=== PATIENT | male | born 1965 | race African-American/Black ===

== ENCOUNTER → 2016-11-24 | Day surgery (SDC) | payer OTHER ==
[~2016-11-24] MED LIST: AMLO10TA4 PO; ATOR20TA PO; BISA-42 PO; CHLO25TA PO; CICL6.1H IH; IV RINGERS,LACTATED 1000ML 1,000 ML IV ONE; LISI-334 PO; MAGN400O4 PO; METF1000 PO; MONT10TA9 PO; NAPR500T8 PO; PROAIR HFA8.5 GM INH; SPIR50TA PO
--- NOTE | 2016-11-24 11:28 | PDOC1 ---
History and Physical Date of Admission Date of Admission DATE: 11/24/16 TIME: 11:19 Source Source: Chart review, Patient History of Present Illness History of Present Illness 50 y/o male with long h/o heartburn; more recently early satiety and abdominal pain with spontaneous improvement in heartburn over time, concerning for Joiner 's. No prior EGD. No h/o PUD, GB or pancreatic issues. Known hemangioma of liver by imaging. No current tobacco or alcohol use. Daily NSAID to some extent. Occasional constipation, using MOM prn with good results. No clear overt bleeding. Father had CRC. Past Medical History Cardiovascular: HTN Pulmonary: Asthma Musculoskeletal: Osteoarthritis Endocrine: Diabetes Past Surgical History Past Surgical History None Family History Family History: Diabetes, Hypertension Social History Smoke: Quit ALCOHOL: none Drugs: None Current Medications Current Medications Active Scripts Active Reported Aldactone (Spironolactone) 50 Mg Tablet 1 Tab PO DAILY Proair Hfa Inhaler (Albuterol Sulfate) 8.5 Gm Hfa.aer.ad 2 Puff INH Q4HRS PRN ROS Review of System Otherwise negative. Physical Exam General: Alert, Oriented X3, Cooperative, No acute distress Lungs: Clear to auscultation Heart: S1S2, RRR, no gallops, no murmurs Abdomen: Normal bowel sounds, Soft, No tenderness, No hepatosplenomegaly, No masses Rectal Exam: deferred Extremities: No cyanosis, No edema Skin: No significant lesion Neuro: Normal speech, Strength at 5/5 X4 ext, Normal tone, Sensation intact, Cranial nerves 3-12 NL, Reflexes 2+ Psych/Mental Status: Mental status NL, Mood NL VTE Prophylaxis Ordered VTE Prophylaxis Devices: No VTE Pharmacological Prophylaxi: No Assessment/Plan Assessment/Plan IMP: 1. Dyspepsia with h/o heartburn with spontaneous improvement concerning for Joiner's. 2. FH CRC in first-degree relative. PLAN: Colonoscopy and EGD. RAY RIVER MD Nov 24, 2016 11:28
[2016-11-24 12:49] VITALS: BP 109/67
--- NOTE | 2016-11-25 14:49 | PATHOLOGY ---
PATHOLOGY REPORT * * * * * * * * FINAL DIAGNOSIS: Stomach, antrum, biopsy: - Chronic superficial gastritis, mild. - No evidence of Helicobacter pylori on immunoperoxidase stain. (CORRINE:; d/t: 11/25/16) REPORT ELECTRONICALLY SIGNED BY: Ezekiel Bustamante M.D. DATE/TIME: 11/25/2016 14:48 * * * * * * * * GROSS PATHOLOGY: Received in formalin labeled "Scotty Fisher, antral biopsy," are two segments of kline soft tissue measuring 0.7 x 0.4 x 0.1 cm in aggregate dimensions and ranging from 0.5 to 0.7 cm in maximum dimension. The specimen is submitted entirely in cassette A1. (CAA; 11/24/2016) INITIAL CPT CODE(S): A; 10068, 60230 Professional services performed [place] [facility] [address] Technical services performed by [facility] at [address] [place] [address] [address] [place] [address]. [facility] [address] phone: fax: attention: Bev Mcqueen SPECIMEN(S) RECEIVED: A.Antral biopsy CLINICAL HISTORY: GERD, constipation PATIENT: SCOTTY FISHER /AGE: 4 1965 (Age: 51) PATIENT #: [id number] ALT CASE #: SPECIMEN COLLECTION DATE: 11/24/2016 SPECIMEN RECEIVED DATE: 11/24/2016 [facility] - [address] [place] [address] - PHONE: [phone] * * * END OF REPORT * * *
== END | disposition home or self-care (01) ==
LOC: EEVIPCON 10:58 → SURG 10:58
PROVIDERS: ATTEND Internal Medicine Gastroenterology
DX: Z12.11 Encounter for screening for malignant neoplasm of colon (principal); K64.8 Other hemorrhoids; K21.0 Gastro-esophageal reflux disease with esophagitis; K31.9 Disease of stomach and duodenum, unspecified; M19.90 Unspecified osteoarthritis, unspecified site; J45.909 Unspecified asthma, uncomplicated; E11.9 Type 2 diabetes mellitus without complications; Z80.0 Family history of malignant neoplasm of digestive organs; Z83.3 Family history of diabetes mellitus; Z82.49 Family history of ischemic heart disease and other diseases of the circulatory system
CPT/HCPCS: 82947; 88305; 88342; 99156; G0641

== ENCOUNTER 2021-03-08 16:12 | Inpatient (IN) | payer OTHER ==
[~2021-03-08] VITALS: Ht 182.9 cm; Wt 166.8 kg
[~2021-03-08 16:12] MED LIST changes: +ALBU2.5V8 INH; -CHLO25TA PO; +CHLO25TA10 PO; -CICL6.1H IH; +CICL6.1H3 IH; -IV RINGERS,LACTATED 1000ML 1,000 ML IV ONE; -LISI-334 PO; +LISI20TA18 PO; -MAGN400O4 PO; +MAGN400O7 PO; +MONT10TA49 PO; -MONT10TA9 PO; -PROAIR HFA8.5 GM INH
[2021-03-08] MEDS ORDERED: VANCOMYCIN PER PHARMACY MC ONE (17:45)
[2021-03-08] MEDS ORDERED: DIPH,PERTUSS(ACELL),TET VAC/PF 0.5 ML SYRINGE. VAX IM ONE (17:45)
[2021-03-08] MEDS: IV NORMAL SALINE 1000ML BAG 1,000 ML IV SCH ×3 (17:59→18:37)
[2021-03-08] MEDS ORDERED: PIPERACILLIN/TAZOBACTAM 4.5 GM in IV NORMAL SALINE 100ML 100 ML IV ONE (18:00)
[2021-03-08] MEDS: MORPHINE SULFATE 4 MG/ML INJ. IV/SQ PRN ×2 (18:00→20:31)
[2021-03-08 18:04] LABS: BASO % 0 % (0-3); EOS # 0.4 x10^3/uL (0.0-0.7); EOS % 3 % (0-3); HEMATOCRIT 37.3 % (39.0-53.0); HEMOGLOBIN 12.2 g/dL (13.0-17.5); LYMPH # 2.4 x10^3/uL (1.0-4.8); LYMPH % 15 % (24-48); MEAN CORPUSCULAR HEMOGLOBIN 28 pg (25-35); MEAN CORPUSCULAR HGB CONC 33 g/dL (31-37); MEAN CORPUSCULAR VOLUME 85 fL (79-100); MONO # 1.2 x10^3/uL (0.0-1.1); MONO % 7 % (0-9); NEUT # 11.8 x10^3/uL (1.8-7.7); NEUT % 75 % (31-73); PLATELET COUNT 299 x10^3/uL (140-400); RED BLOOD COUNT 4.38 x10^6/uL (4.30-5.70); RED CELL DISTRIBUTION WIDTH 14.5 % (11.5-14.5); WHITE BLOOD COUNT 15.8 x10^3/uL (4.0-11.0)
--- NOTE | 2021-03-08 18:06 | PHYS DOC ---
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 Patient states he was put on Bactrim 4 days ago with no improvement. Denies any fever, nausea or vomiting. (BRIANNA LEON Blake MOLDER OPERATOR) Review of Systems: Review of Systems: Constitutional: Denies fever or chills. [] Eyes: Denies change in visual acuity. [] HENT: Denies nasal congestion or sore throat. [] Respiratory: Denies cough or shortness of breath. [] Cardiovascular: Denies chest pain or edema. [] GI: Denies abdominal pain, nausea, vomiting, bloody stools or diarrhea. [] : Denies dysuria. [] Musculoskeletal: Denies back pain or joint pain. [] Integument: Reports right buttock abscess Neurologic: Denies headache, focal weakness or sensory changes. [] Psychiatric: Denies depression or anxiety. [] (ERIKARAFIABRIANNA Hodgson MOLDER OPERATOR) Heart Score: C/O Chest Pain: N/A Risk Factors: Risk Factors: DM, Current or recent (<one month) smoker, HTN, HLP, family history of CAD, obesity. Risk Scores: Score 0 - 3: 2.5% MACE over next 6 weeks - Discharge Home Score 4 - 6: 20.3% MACE over next 6 weeks - Admit for Clinical Observation Score 7 - 10: 72.7% MACE over next 6 weeks - Early Invasive Strategies (ERIKABRIANNA STEINBERG MOLDER OPERATOR) Current Medications: Current Medications Medications (Trade) Dose Ordered Sig/Fatmata Start Time Stop Time Status Last Admin Dose Admin Diphtheria/ Tetanus/Acell Pertussis (ADACEL TDap SYRINGE) 0.5 ml ONCE ONCE 03/08/21 17:45 03/08/21 17:47 DC 03/08/21 18:01 0.5 ML Morphine Sulfate (Morphine Sulfate) 4 mg PRN Q15MIN PRN 03/08/21 17:45 03/09/21 17:44 03/08/21 18:00 4 MG Piperacillin Sod/ Tazobactam Sod 4.5 gm/Sodium Chloride 100 ml @ 200 mls/hr 1X ONCE 03/08/21 18:00 03/08/21 18:29 03/08/21 18:01 200 MLS/HR Sodium Chloride 1,000 ml @ 2,340 mls/hr Q26M 03/08/21 17:45 03/08/21 18:45 03/08/21 17:59 2,340 MLS/HR Vancomycin HCl (Vanco Per Pharmacy) 1 each 1X ONCE 03/08/21 17:45 03/08/21 17:46 UNV Vancomycin HCl 2 gm/Sodium Chloride 500 ml @ 250 mls/hr 1X ONCE 03/08/21 19:00 03/08/21 20:59 (BRIANNA LEON MOLDER OPERATOR) Allergies: Allergies: Allergies Coded Allergies Type Severity Reaction Last Updated Verified No Known Drug Allergies 11/24/16 No (BRIANNA LEON MOLDER OPERATOR) Physical Exam: PE: Constitutional: Well developed, well nourished, no acute distress, non-toxic appearance. [] HENT: Normocephalic, atraumatic, bilateral external ears normal, oropharynx moist, no oral exudates, nose normal. [] Eyes: PERRLA, EOMI, conjunctiva normal, no discharge. [] Neck: Normal range of motion, no tenderness, supple, no stridor. [] Cardiovascular:Heart rate regular rhythm, no murmur [] Lungs & Thorax: Bilateral breath sounds clear to auscultation [] Abdomen: Bowel sounds normal, soft, no tenderness, no masses, no pulsatile masses. [] Skin: Right buttock cleft with moderate sized area of induration, the area is firm, erythematous at the center with a couple open areas. The area is very tender to touch. There is pus draining from the area. Back: No tenderness, no CVA tenderness. [] Extremities: No tenderness, no cyanosis, no clubbing, ROM intact, no edema. [] Neurologic: Alert and oriented X 3, normal motor function, normal sensory function, no focal deficits noted. [] Psychologic: Affect normal, judgement normal, mood normal. [] (BRIANNA LEON MOLDER OPERATOR) Current Patient Data: Vital Signs: Vital Signs Date Time Temp Pulse Resp B/P (MAP) Pulse Ox O2 Delivery O2 Flow Rate FiO2 8/7/21 18:00 98 Room Air 03/08/21 17:15 98.4 85 29 147/82 (81) 98.4 (BRIANNA LEON APRN) EKG: EKG: [] (BRIANNA LEON APRN) Radiology/Procedures: Radiology/Procedures: PROCEDURE: CT PELVIS W/CONTRAST EXAM: CT pelvis with IV contrast DATE: 03/08/2021 6:39 PM COMPARISON: No prior INDICATION: right buttock abscess TECHNIQUE: CT of the pelvis was performed following the administration of IV contrast. Axial, coronal and sagittal reformatted images were generated. PQRS compliance statement - One or more of the following individualized dose reduction techniques were utilized for this study: 1. Automated exposure control 2. Adjustment of the mA and/or kV according to patient size 3. Use of iterative reconstruction technique FINDINGS: Marked infiltration in the medial right gluteal region without discrete loculated fluid collection. Associated skin thickening is seen. Moderate colonic stool content is seen. Small or large bowel are grossly normal in caliber. No pelvic ascites, lymphadenopathy or mass. However a few mildly prominent iliac chain and inguinal lymph nodes may be reactive. Recommend close attention on follow-up. IMPRESSION: 1. Marked infiltration right gluteal region may represent cellulitis. No discrete associated loculated fluid collection or abscess is seen. 2. Prominent pelvic lymph nodes and inguinal lymph nodes may be reactive, recommend close attention on follow-up. Electronically signed by: Vince Rogel MD (03/08/2021 7:20 PM) [facility] DICTATED and SIGNED BY: VINCE ROGEL MD DATE: 03/08/21 [id number] (BRIANNA LEON MOLDER OPERATOR) Course & Med Decision Making: Course & Med Decision Making Pertinent Labs and Imaging studies reviewed. (See chart for details) This is a 55-year-old male patient presented to the ED today with a large abscess in the right buttock. Symptoms began 1 week ago. Has been tried on Bactrim with no success. Vitals on arrival to the ED temperature 98.4, heart rate 85, respiration 29 on room air, O2 sats 98%, blood pressure 147/82. CBC with a WBC of 15.8, hemoglobin 12.2 with hematocrit of 37.3. Lactic is normal. CMP with potassium of 3.2 given oral potassium replacement, sed rate 54, CRP 77.8. CT of the pelvic with IV contrast noted for Marked infiltration right gluteal region may represent cellulitis. No discrete associated loculated fluid co llection or abscess is seen. Tetanus was given in the ED, spoke to Dr. Altamirano general surgeon who follow-up with the patient. Spoke to Dr. Fleming who accepted patient for admission Patient was given Zosyn and vancomycin (BRIANNA LEON APRN) Course & Med Decision Making I have participated in the care of this patient and I have reviewed and agree with all pertinent clinical information above including history, exam, and recommendations. Krystal Fisher DO (KRYSTAL FISHER DO) Ashley Disclaimer: Ashley Disclaimer: This electronic medical record was generated, in whole or in part, using a voice recognition dictation system. (BRIANNA LEON APRN) Departure Departure Impression: Primary Impression: Abscess of right buttock Additional Impression: Cellulitis of buttock, right Disposition: ADMITTED INPATIENT Condition: STABLE Referrals: UNKNOWN PCP NAME (PCP) BRIANNA LEON APRN Mar 08, 2021 18:06 KRYSTAL FISHER DO Mar 08, 2021 23:49
[2021-03-08 18:28] LABS: CALCIUM 9.2 mg/dL (8.5-10.1); CREATININE 1.1 mg/dL (0.7-1.3); GFR 83.8; POTASSIUM 3.2 mmol/L (3.5-5.1)
[2021-03-08 18:34] LABS: ALBUMIN 3.3 g/dL (3.4-5.0); ALBUMIN/GLOBULIN RATIO 0.7 (1.0-1.7); C-REACTIVE PROTEIN 77.8 mg/L (0-3.3); TOTAL BILIRUBIN 0.4 mg/dL (0.2-1.0); TOTAL PROTEIN 7.8 g/dL (6.4-8.2)
[2021-03-08] MEDS ORDERED: IOHEXOL 300 MG/ML 100ML VIAL. IV ONE (18:45)
[2021-03-08] MEDS ORDERED: VANCOMYCIN 2 GM in IV NORMAL SALINE 500ML BAG 500 ML IV ONE (19:00)
--- NOTE | 2021-03-08 19:22 | RAD ---
EXAM: CT pelvis with IV contrast DATE: 03/08/2021 6:39 PM COMPARISON: No prior INDICATION: right buttock abscess TECHNIQUE: CT of the pelvis was performed following the administration of IV contrast. Axial, coronal and sagittal reformatted images were generated. PQRS compliance statement - One or more of the following individualized dose reduction techniques wer e utilized for this study: 1. Automated exposure control 2. Adjustment of the mA and/or kV according to patient size 3. Use of iterative reconstruction technique FINDINGS: Marked infiltration in the medial right gluteal region without discrete loculated fluid collection. A ssociated skin thickening is seen. Moderate colonic stool content is seen. Small or large bowel are grossly normal in caliber. No pelvic ascites, lymphadenopathy or mass. However a few mildly prominent iliac chain and inguinal lymph node s may be reactive. Recommend close attention on follow-up. IMPRESSION: 1. Marked infiltration right gluteal region may represent cellulitis. No discrete associated loculat ed fluid collection or abscess is seen. 2. Prominent pelvic lymph nodes and inguinal lymph nodes may be reactive, recommend close attention on follow-up. Electronically signed by: Vince Rossi MD (03/08/2021 7:20 PM) KARINA
[2021-03-08] MEDS ORDERED: MAGNESIUM HYDROXIDE 2,400 MG/30 ML ORAL.SUSP. PO PRN (19:30)
[2021-03-08] MEDS ORDERED: ZOLPIDEM 5 MG TABLET. PO PRN (19:30)
[2021-03-08] MEDS ORDERED: ACETAMINOPHEN 325 MG TABLET. PO PRN ×2 (19:30→21:00)
[2021-03-08] MEDS ORDERED: ONDANSETRON PF 4 MG/2 ML VIAL. IVP PRN ×2 (19:30→21:00)
[2021-03-08] MEDS ORDERED: MAG HYDROX/ALUMINUM HYD/SIMETH 30 ML ORAL.SUSP PO PRN (19:30)
[2021-03-08] MEDS ORDERED: CALCIUM CARBONATE 500 MG TAB.CHEW PO PRN (19:30)
--- NOTE | 2021-03-08 19:41 | PDOC1 ---
History and Physical Date of Admission Date of Admission DATE: 03/08/21 TIME: 19:38 Identification/Chief Complaint Chief Complaint Abscess Source Source: Chart review, Patient History of Present Illness History of Present Illness Patient is a 55-year-old male who presents from [facility] for evaluation of a right gluteal abscess that is been present since March 01, he states he has been treated with Bactrim twice daily without improvement. States that since has been within purulent fluid, and is tender to touch. He denies any fever, nausea, or vomiting. Labs on admission showed WBC 15.8, hemoglobin 12.2, hematocrit 37.3, potassium 3.2, CRP 77.8, albumin 3.3. CT abdomen/pelvis on admission showed marked infiltration right gluteal region may represent cellulitis but no discrete associated loculated fluid collection. He received IV fluids and IV antibiotics in the ED. Will admit patient for further medical management. Past Medical History Cardiovascular: HTN Pulmonary: Asthma Musculoskeletal: Osteoarthritis Endocrine: Diabetes Past Surgical History Past Surgical History Denies surgical history Family History Family History: Diabetes, Hypertension Social History Smoke: No ALCOHOL: none Drugs: None Current Medications Current Medications Current Medications Sodium Chloride 1,000 ml @ 2,340 mls/hr Q26M IV Last administered on 03/08/21at 17:59; Start 03/08/21 at 17:45; Stop 03/08/21 at 18:45; Status DC Piperacillin Sod/ Tazobactam Sod 4.5 gm/Sodium Chloride 100 ml @ 200 mls/hr 1X ONCE IV Last administered on 03/08/21at 18:01; Start 03/08/21 at 18:00; Stop 03/08/21 at 18:29; Status DC Vancomycin HCl (Vanco Per Pharmacy) 1 each 1X ONCE MC Last administered on 03/08/21at 17:45; Start 03/08/21 at 17:45; Stop 03/08/21 at 19:22; Status DC Morphine Sulfate (Morphine Sulfate) 4 mg PRN Q15MIN PRN IV/SQ PAIN GREATER THAN 3/10 Last administered on 03/08/21at 18:00; Start 03/08/21 at 17:45; Stop 03/09/21 at 17:44 Diphtheria/ Tetanus/Acell Pertussis (ADACEL TDap SYRINGE) 0.5 ml ONCE ONCE VAX IM Last administered on 03/08/21at 18:01; Start 03/08/21 at 17:45; Stop 03/08/21 at 17:47; Status DC Vancomycin HCl 2 gm/Sodium Chloride 500 ml @ 250 mls/hr 1X ONCE IV Last administered on 03/08/21at 19:00; Start 03/08/21 at 19:00; Stop 03/08/21 at 20:59 Iohexol (Omnipaque 300 Mg/ml) 75 ml 1X ONCE IV Last administered on 03/08/21at 19:03; Start 03/08/21 at 18:45; Stop 03/08/21 at 19:19; Status DC Vancomycin HCl 1.5 gm/Sodium Chloride 500 ml @ 250 mls/hr Q8H IV ; Start 03/09/21 at 03:00 Vancomycin HCl (Vancomycin Trough Level) 1 each 1X ONCE MC ; Start 03/09/21 at 18:30; Stop 03/09/21 at 18:31 Morphine Sulfate (Morphine Sulfate) 5 mg PRN Q2HR PRN IV SEVERE PAIN 7-10; Start 03/08/21 at 19:30; Status UNV Ondansetron HCl (Zofran) 4 mg PRN Q6HRS PRN IVP NAUSEA/VOMITING; Start 03/08/21 at 19:30; Status UNV Al Hydroxide/Mg Hydroxide (Mylanta Plus Xs) 30 ml PRN Q3HRS PRN PO HEARTBURN / GAS; Start 03/08/21 at 19:30; Status UNV Calcium Carbonate/ Glycine (Tums) 500 mg PRN Q3HRS PRN PO UPSET STOMACH; Start 03/08/21 at 19:30; Status UNV Zolpidem Tartrate (Ambien) 5 mg PRN QHS PRN PO INSOMNIA, MAY REPEAT IN 1HR; Start 03/08/21 at 19:30; Status UNV Acetaminophen (Tylenol) 650 mg PRN Q6HRS PRN PO Headaches, Temp > 101.5F; Start 03/08/21 at 19:30; Status UNV Magnesium Hydroxide (Milk Of Magnesia) 2,400 mg PRN Q12HR PRN PO CONSTIPATION; Start 03/08/21 at 19:30; Status UNV Heparin Sodium (Porcine) (Heparin Sodium) 5,000 unit Q8HRS SQ ; Start 8/7/21 at 22:00; Status UNV Active Scripts Active Reported Milk Of Magnesia (Magnesium Hydroxide) 400 Mg/5 Ml Oral.susp 400 Mg PO BID Montelukast Sodium Tablet (Montelukast Sodium) 10 Mg Tablet 1 Tab PO DAILY Norvasc (Amlodipine Besylate) 10 Mg Tablet 10 Mg PO DAILY Naproxen 500 Mg Tablet.dr 1 Tab PO BID Lisinopril 20 Mg Tablet 20 Mg PO BID Lipitor (Atorvastatin Calcium) 20 Mg Tablet 1 Tab PO DAILY Glucophage (Metformin Hcl) 1,000 Mg Tablet 1,000 Mg PO BIDWMEALS Dulcolax (Bisacodyl) 5 Mg Tablet.dr 5 Mg PO PRN DAILY PRN Chlorthalidone 25 Mg Tablet 1 Tab PO DAILY Alvesco (Ciclesonide) 6.1 Gm Hfa.aer.ad 6.1 Gm IH Aldactone (Spironolactone) 50 Mg Tablet 1 Tab PO DAILY Proair Hfa Inhaler (Albuterol Sulfate) 8.5 Gm Hfa.aer.ad 2 Puff INH Q4HRS PRN Allergies Allergies: Coded Allergies: No Known Drug Allergies (Unverified , 11/24/16) ROS Review of System GENERAL: No history of weight change, weakness or fevers. SKIN: No bruising, hair changes or rashes. EYES: No blurred, double or loss of vision. NOSE AND THROAT: No history of nosebleeds, hoarseness or sore throat. HEART: Denies chest pain, denies palpitations. LUNGS: Denies cough, hemoptysis, wheezing or shortness of breath. GASTROINTESTINAL: Denies nausea, vomiting, abdominal pain. GENITOURINARY: Denies dysuria, frequency, urgency, hematuria. NEUROLOGIC: Denies history of numbness, tingling, tremor or weakness. PSYCHIATRIC: Denies anxiety, denies depression. ENDOCRINE: No history of heat or cold intolerance, polyuria or polydipsia. EXTREMITIES: Denies muscle weakness, joint pain, pain on walking or stiffness. SKIN: Abscess to right hip Physical Exam Physical Exam General: Alert, Oriented X3, Cooperative, mild distress HEENT: PERRLA, EOMI Lungs: Clear to auscultation, Normal air movement Heart: RRR, no murmurs Cardiovascular: S1, S2 Abdomen: Normal bowel sounds, Soft, No tenderness Extremities: No clubbing, No cyanosis Skin: ~6 cm abscess to right gluteal cleft with draining purulent fluid, no surrounding cellulitis. No rashes, No significant lesion Neuro: Normal speech, Normal tone, Sensation intact Psych/Mental Status: Mental status NL, Mood NL Vitals Vitals Vital Signs Date Time Temp Pulse Resp B/P (MAP) Pulse Ox O2 Delivery O2 Flow Rate FiO2 03/08/21 18:00 98 Room Air 03/08/21 17:15 98.4 85 29 147/82 (81) 98.4 Labs Labs Laboratory Tests Test 03/08/21 17:47 White Blood Count 15.8 x10^3/uL (4.0-11.0) Red Blood Count 4.38 x10^6/uL (4.30-5.70) Hemoglobin 12.2 g/dL (13.0-17.5) Hematocrit 37.3 % (39.0-53.0) Mean Corpuscular Volume 85 fL (79-100) Mean Corpuscular Hemoglobin 28 pg (25-35) Mean Corpuscular Hemoglobin Concent 33 g/dL (31-37) Red Cell Distribution Width 14.5 % (11.5-14.5) Platelet Count 299 x10^3/uL (140-400) Neutrophils (%) (Auto) 75 % (31-73) Lymphocytes (%) (Auto) 15 % (24-48) Monocytes (%) (Auto) 7 % (0-9) Eosinophils (%) (Auto) 3 % (0-3) Basophils (%) (Auto) 0 % (0-3) Neutrophils # (Auto) 11.8 x10^3/uL (1.8-7.7) Lymphocytes # (Auto) 2.4 x10^3/uL (1.0-4.8) Monocytes # (Auto) 1.2 x10^3/uL (0.0-1.1) Eosinophils # (Auto) 0.4 x10^3/uL (0.0-0.7) Basophils # (Auto) 0.0 x10^3/uL (0.0-0.2) Erythrocyte Sedimentation Rate 58 (0-15) Sodium Level 140 mmol/L (136-145) Potassium Level 3.2 mmol/L (3.5-5.1) Chloride Level 101 mmol/L (98-107) Carbon Dioxide Level 32 mmol/L (21-32) Anion Gap 7 (6-14) Blood Urea Nitrogen 12 mg/dL (8-26) Creatinine 1.1 mg/dL (0.7-1.3) Estimated GFR (Cockcroft-Gault) 83.8 BUN/Creatinine Ratio 11 (6-20) Glucose Level 113 mg/dL (70-99) Lactic Acid Level 1.0 mmol/L (0.4-2.0) Calcium Level 9.2 mg/dL (8.5-10.1) Total Bilirubin 0.4 mg/dL (0.2-1.0) Aspartate Amino Transf (AST/SGOT) 44 U/L (15-37) Alanine Aminotransferase (ALT/SGPT) 39 U/L (16-63) Alkaline Phosphatase 80 U/L (46-116) C-Reactive Protein, Quantitative 77.8 mg/L (0-3.3) Total Protein 7.8 g/dL (6.4-8.2) Albumin 3.3 g/dL (3.4-5.0) Albumin/Globulin Ratio 0.7 (1.0-1.7) Laboratory Tests Test 03/08/21 17:47 White Blood Count 15.8 x10^3/uL (4.0-11.0) Red Blood Count 4.38 x10^6/uL (4.30-5.70) Hemoglobin 12.2 g/dL (13.0-17.5) Hematocrit 37.3 % (39.0-53.0) Mean Corpuscular Volume 85 fL (79-100) Mean Corpuscular Hemoglobin 28 pg (25-35) Mean Corpuscular Hemoglobin Concent 33 g/dL (31-37) Red Cell Distribution Width 14.5 % (11.5-14.5) Platelet Count 299 x10^3/uL (140-400) Neutrophils (%) (Auto) 75 % (31-73) Lymphocytes (%) (Auto) 15 % (24-48) Monocytes (%) (Auto) 7 % (0-9) Eosinophils (%) (Auto) 3 % (0-3) Basophils (%) (Auto) 0 % (0-3) Neutrophils # (Auto) 11.8 x10^3/uL (1.8-7.7) Lymphocytes # (Auto) 2.4 x10^3/uL (1.0-4.8) Monocytes # (Auto) 1.2 x10^3/uL (0.0-1.1) Eosinophils # (Auto) 0.4 x10^3/uL (0.0-0.7) Basophils # (Auto) 0.0 x10^3/uL (0.0-0.2) Erythrocyte Sedimentation Rate 58 (0-15) Sodium Level 140 mmol/L (136-145) Potassium Level 3.2 mmol/L (3.5-5.1) Chloride Level 101 mmol/L (98-107) Carbon Dioxide Level 32 mmol/L (21-32) Anion Gap 7 (6-14) Blood Urea Nitrogen 12 mg/dL (8-26) Creatinine 1.1 mg/dL (0.7-1.3) Estimated GFR (Cockcroft-Gault) 83.8 BUN/Creatinine Ratio 11 (6-20) Glucose Level 113 mg/dL (70-99) Lactic Acid Level 1.0 mmol/L (0.4-2.0) Calcium Level 9.2 mg/dL (8.5-10.1) Total Bilirubin 0.4 mg/dL (0.2-1.0) Aspartate Amino Transf (AST/SGOT) 44 U/L (15-37) Alanine Aminotransferase (ALT/SGPT) 39 U/L (16-63) Alkaline Phosphatase 80 U/L (46-116) C-Reactive Protein, Quantitative 77.8 mg/L (0-3.3) Total Protein 7.8 g/dL (6.4-8.2) Albumin 3.3 g/dL (3.4-5.0) Albumin/Globulin Ratio 0.7 (1.0-1.7) Images Images PATIENT: RAY CHAPPELL ACCOUNT: [id number] : 1965 LOCATION: ER AGE: 55 SEX: M EXAM STATUS: REG ER ORD. PHYSICIAN: BRIANNA LEON AIR CONDITIONER INSTALLER HELPER REASON: right buttock abscess, OMNI 300, 75 ML IV PROCEDURE: CT PELVIS W/CONTRAST EXAM: CT pelvis with IV contrast DATE: 03/08/2021 6:39 PM COMPARISON: No prior INDICATION: right buttock abscess TECHNIQUE: CT of the pelvis was performed following the administration of IV contrast. Axial, coronal and sagittal reformatted images were generated. PQRS compliance statement - One or more of the following individualized dose reduction techniques were utilized for this study: 1. Automated exposure control 2. Adjustment of the mA and/or kV according to patient size 3. Use of iterative reconstruction technique FINDINGS: Marked infiltration in the medial right gluteal region without discrete loculated fluid collection. Associated skin thickening is seen. Moderate colonic stool content is seen. Small or large bowel are grossly normal in caliber. No pelvic ascites, lymphadenopathy or mass. However a few mildly prominent iliac chain and inguinal lymph nodes may be reactive. Recommend close attention on follow-up. IMPRESSION: 1. Marked infiltration right gluteal region may represent cellulitis. No discrete associated loculated fluid collection or abscess is seen. 2. Prominent pelvic lymph nodes and inguinal lymph nodes may be reactive, recommend close attention on follow-up. VTE Prophylaxis Ordered VTE Prophylaxis Devices: Yes VTE Pharmacological Prophylaxi: No Assessment/Plan Assessment/Plan Abscess right gluteal cleft Normocytic anemia HTN HLD Depression GERD Moderate malnutrition Plan: Will admit patient with general surgery consultation Continue IV vancomycin Will provide IV pain management Resume home medications FEN - Cardiac diet; I will keep NPO after midnight for any possible surgical debridement PPX - Heparin FULL CODE Dispo - inpatient for above Justifications for Admission Other Justification ASHISH BOYCE MD Mar 08, 2021 19:41
--- NOTE | 2021-03-08 19:42 | NUR ---
Pharmacy Vancomycin Dosing Note S:Consulted to monitor and dose vancomycin started 03/08/21. O:RAY CHAPPELL is a 55 year old M with Abscess . Height: 6 feet, 0 inches Weight: 166.8 kg [place] Body Weight: 77.60 Adjusted Body Weight: 113.28 Dosing Weight: Actual Other Antibiotics: LABS: Last BUN: Last Creatinine: 01.1 Creatinine Clearance: 120 mL/min Last WBC: 15.8 Last Procalcitonin: Tmax (past 24 hours): 98.5 Microbiology: I/O: Drug Levels: Last level: on at Last dose given 03/08/21 at 1900 Vancomycin Dosing: Loading Dose: 2000 mg x1 Dosing Weight: Actual Target Trough: 10-20 A: Based on: WEIGHT AND RENAL FUNCTION, VANCOMYCIN 2GM IV BOLUS GIVEN, P: 1. Begin Vancomycin 1500 mg IV q8h 2. Follow up Trough level on 03/09/21 at 1830 3. Pharmacy will continue to monitor, follow and adjust therapy as needed. MAYA ELI Rashard, 03/08/21 0861
[2021-03-08] MEDS ORDERED: MORPHINE SULFATE 4 MG/ML INJ. IVP PRN (21:00)
[2021-03-08] MEDS: HEPARIN for SUB-Q USE 5,000 UNIT/ML VIAL. SQ SCH (22:00)
[2021-03-08 23:00] VITALS: BP 143/73
[2021-03-09] MEDS: VANCOMYCIN 1.5 GM in IV NORMAL SALINE 500ML BAG 500 ML IV SCH ×3 (02:57→21:36)
[2021-03-09 03:00] VITALS: BP 122/66
[2021-03-09 07:00] VITALS: BP 131/72
[2021-03-09] MEDS ORDERED: TAMS0.4C97 PO (07:16)
[2021-03-09] MEDS ORDERED: DULO30CA2 PO (07:16)
[2021-03-09] MEDS ORDERED: PANT20TA2 PO (07:16)
[2021-03-09] MEDS ORDERED: CETI10TA74 PO (07:16)
[2021-03-09] MEDS ORDERED: ASPI-630 PO (07:20)
[2021-03-09] MEDS ORDERED: BISACODYL 5 MG TABLET.DR. PO PRN (07:30)
[2021-03-09] MEDS: TAMSULOSIN 0.4 MG CAP.ER.24H. PO SCH (08:21)
[2021-03-09] MEDS: ATORVASTATIN CALCIUM 20 MG TABLET PO SCH (08:21)
[2021-03-09] MEDS: CETIRIZINE HCL 10 MG TABLET. PO SCH (08:22)
[2021-03-09] MEDS: ASPIRIN CHEWABLE 81 MG TABLET. PO SCH (08:22)
[2021-03-09] MEDS: LISINOPRIL 20 MG TABLET PO SCH ×2 (08:22→21:36)
[2021-03-09] MEDS: HEPARIN for SUB-Q USE 5,000 UNIT/ML VIAL. SQ SCH ×3 (08:34→21:37)
[2021-03-09] MEDS: MORPHINE SULFATE 10 MG/ML VIAL. IV PRN ×3 (09:08→21:40)
--- NOTE | 2021-03-09 09:13 | PDOC2 ---
CLARA OLIVER SENIOR QUALITY ENGINEER 03/09/21 0913: CONSULT Date of Consult Date of Consult DATE: 03/09/21 TIME: 09:10 Reason for Consult Reason for Consult: abscess Referring Physician Referring Physician: ER Identification/Chief Complaint Chief Complaint gluteal pain Source Source: Chart review, Patient History of Present Illness Reason for Visit: 1 week of gluteal pain and swelling. Wednesday started draining, has not stopped. Tender to touch. No previous infections prior. Past Medical History Cardiovascular: HTN Pulmonary: Asthma Musculoskeletal: Osteoarthritis Endocrine: Diabetes Past Surgical History Past Surgical History: No pertinent history Family History Family History: Diabetes, Hypertension Social History No ALCOHOL: none Drugs: None Current Problem List Problem List Problems Medical Problems: (1) Cellulitis of buttock, right Status: Acute Current Medications Current Medications Current Medications Sodium Chloride 1,000 ml @ 2,340 mls/hr Q26M IV Last administered on 03/08/21at 17:59; Start 03/08/21 at 17:45; Stop 03/08/21 at 18:45; Status DC Piperacillin Sod/ Tazobactam Sod 4.5 gm/Sodium Chloride 100 ml @ 200 mls/hr 1X ONCE IV Last administered on 03/08/21at 18:01; Start 03/08/21 at 18:00; Stop 03/08/21 at 18:29; Status DC Vancomycin HCl (Vanco Per Pharmacy) 1 each 1X ONCE MC Last administered on 03/08/21at 17:45; Start 03/08/21 at 17:45; Stop 03/08/21 at 19:22; Status DC Morphine Sulfate (Morphine Sulfate) 4 mg PRN Q15MIN PRN IV/SQ PAIN GREATER THAN 3/10 Last administered on 03/08/21at 20:31; Start 03/08/21 at 17:45; Stop 03/09/21 at 07:28; Status DC Diphtheria/ Tetanus/Acell Pertussis (ADACEL TDap SYRINGE) 0.5 ml ONCE ONCE VAX IM Last administered on 03/08/21at 18:01; Start 03/08/21 at 17:45; Stop 03/08/21 at 17:47; Status DC Vancomycin HCl 2 gm/Sodium Chloride 500 ml @ 250 mls/hr 1X ONCE IV Last administered on 03/08/21at 19:00; Start 03/08/21 at 19:00; Stop 03/08/21 at 20:59; Status DC Iohexol (Omnipaque 300 Mg/ml) 75 ml 1X ONCE IV Last administered on 03/08/21at 19:03; Start 03/08/21 at 18:45; Stop 03/08/21 at 19:19; Status DC Vancomycin HCl 1.5 gm/Sodium Chloride 500 ml @ 250 mls/hr Q8H IV Last administered on 03/09/21at 02:57; Start 03/09/21 at 03:00 Vancomycin HCl (Vancomycin Trough Level) 1 each 1X ONCE MC ; Start 03/09/21 at 18:30; Stop 03/09/21 at 18:31 Morphine Sulfate (Morphine Sulfate) 5 mg PRN Q2HR PRN IV SEVERE PAIN 7-10 Last administered on 03/09/21at 09:08; Start 03/08/21 at 19:30 Ondansetron HCl (Zofran) 4 mg PRN Q6HRS PRN IVP NAUSEA/VOMITING; Start 03/08/21 at 19:30 Al Hydroxide/Mg Hydroxide (Mylanta Plus Xs) 30 ml PRN Q3HRS PRN PO HEARTBURN / GAS; Start 03/08/21 at 19:30 Calcium Carbonate/ Glycine (Tums) 500 mg PRN Q3HRS PRN PO UPSET STOMACH; Start 03/08/21 at 19:30 Zolpidem Tartrate (Ambien) 5 mg PRN QHS PRN PO INSOMNIA, MAY REPEAT IN 1HR; Start 03/08/21 at 19:30 Acetaminophen (Tylenol) 650 mg PRN Q6HRS PRN PO Headaches, Temp > 101.5F; Start 03/08/21 at 19:30 Magnesium Hydroxide (Milk Of Magnesia) 2,400 mg PRN Q12HR PRN PO CONSTIPATION; Start 03/08/21 at 19:30 Heparin Sodium (Porcine) (Heparin Sodium) 5,000 unit Q8HRS SQ Last administered on 03/09/21at 08:34; Start 03/08/21 at 22:00 Vancomycin HCl (Vanco Per Pharmacy) 1 each PRN DAILY PRN MC SEE COMMENTS; Start 03/08/21 at 19:45 Ondansetron HCl (Zofran) 4 mg PRN Q8HRS PRN IVP NAUSEA/VOMITING; Start 03/08/21 at 21:00; Stop 03/09/21 at 07:28; Status DC Morphine Sulfate (Morphine Sulfate) 4 mg PRN Q2HR PRN IVP PAIN; Start 03/08/21 at 21:00; Stop 03/09/21 at 07:28; Status DC Acetaminophen (Tylenol) 650 mg PRN Q4HRS PRN PO FEVER > 100.3'F; Start 03/08/21 at 21:00; Stop 03/09/21 at 07:28; Status DC Aspirin (Aspirin Chewable) 81 mg DAILY PO Last administered on 03/09/21at 08:22; Start 03/09/21 at 09:00 Atorvastatin Calcium (Lipitor) 20 mg DAILY PO Last administered on 03/09/21at 08:21; Start 03/09/21 at 09:00 Bisacodyl (Dulcolax Tab) 5 mg PRN DAILY PRN PO CONSTIPATION, 2nd CHOICE; Start 03/09/21 at 07:30 Cetirizine HCl (ZyrTEC) 10 mg DAILY PO Last administered on 03/09/21at 08:22; Start 03/09/21 at 09:00 Duloxetine HCl (Cymbalta) 30 mg QHS PO ; Start 03/09/21 at 21:00 Lisinopril (Prinivil) 20 mg BID PO Last administered on 03/09/21at 08:22; Start 03/09/21 at 09:00 Tamsulosin HCl (Flomax) 0.8 mg DAILY PO Last administered on 03/09/21at 08:21; Start 03/09/21 at 09:00 Active Scripts Active Reported Aspirin 81 Mg Tab.chew 1 Tab PO DAILY Zyrtec (Cetirizine Hcl) 10 Mg Tablet 1 Tab PO DAILY Protonix (Pantoprazole Sodium) 20 Mg Tablet. 40 Mg PO DAILY Flomax (Tamsulosin Hcl) 0.4 Mg Cap.er.24h 2 Cap PO DAILY Cymbalta (Duloxetine Hcl) 30 Mg Capsule.dr 30 Mg PO QHS Milk Of Magnesia (Magnesium Hydroxide) 400 Mg/5 Ml Oral.susp 400 Mg PO BID Montelukast Sodium Tablet (Montelukast Sodium) 10 Mg Tablet 1 Tab PO DAILY Norvasc (Amlodipine Besylate) 10 Mg Tablet 10 Mg PO DAILY Naproxen 500 Mg Tablet.dr 1 Tab PO BID Lisinopril 20 Mg Tablet 20 Mg PO BID Lipitor (Atorvastatin Calcium) 20 Mg Tablet 1 Tab PO DAILY Glucophage (Metformin Hcl) 1,000 Mg Tablet 1,000 Mg PO BIDWMEALS Dulcolax (Bisacodyl) 5 Mg Tablet.dr 5 Mg PO PRN DAILY PRN Chlorthalidone (Chlorthalidone) 25 Mg Tablet 1 Tab PO DAILY Alvesco (Ciclesonide) 6.1 Gm Hfa.aer.ad 6.1 Gm IH Aldactone (Spironolactone) 50 Mg Tablet 1 Tab PO DAILY Proair Hfa Inhaler (Albuterol Sulfate) 8.5 Gm Hfa.aer.ad 2 Puff INH Q4HRS PRN Allergies Allergies: Coded Allergies: No Known Drug Allergies (Unverified , 11/24/16) ROS General: No: Chills, Other (fevers ) PSYCHOLOGICAL ROS: No: Anxiety, Depression Eyes: No Blurry vision, No Double vision HEENT: No: Heacaches, Sore Throat Hematological and Lymphatic: No: Bleeding Problems, Blood Clots Respiratory: No: Cough, Shortness of breath Cardiovascular: No Chest Pain, No Palpitations Gastrointestinal: No Nausea, No Vomiting Genitourinary: No Dysuria Musculoskeletal: No Joint Pain, No Muscle Pain Neurological: No Impaired Coord/balance, No Numbness/Tingling Skin: Yes Other (see hpi) Physical Exam General: Alert, Oriented X3, Cooperative HEENT: Atraumatic, PERRLA Lungs: Clear to auscultation, Normal air movement Heart: Regular rate, Normal S1, Normal S2 Abdomen: Normal bowel sounds, Soft, No tenderness Extremities: No clubbing, No cyanosis Skin: Other (gluteal area with induration, drainage, tender to touch) Neuro: Normal gait, Normal speech Psych/Mental Status: Mental status NL, Mood NL MUSCULOSKELETAL: No deformity, No swelling Vitals VITALS Vital Signs Date Time Temp Pulse Resp B/P (MAP) Pulse Ox O2 Delivery O2 Flow Rate FiO2 03/09/21 09:08 16 Room Air 03/09/21 08:22 82 131/72 03/09/21 07:00 98.0 94 98.0 Labs Labs Laboratory Tests Test 03/08/21 17:47 White Blood Count 15.8 x10^3/uL (4.0-11.0) Red Blood Count 4.38 x10^6/uL (4.30-5.70) Hemoglobin 12.2 g/dL (13.0-17.5) Hematocrit 37.3 % (39.0-53.0) Mean Corpuscular Volume 85 fL (79-100) Mean Corpuscular Hemoglobin 28 pg (25-35) Mean Corpuscular Hemoglobin Concent 33 g/dL (31-37) Red Cell Distribution Width 14.5 % (11.5-14.5) Platelet Count 299 x10^3/uL (140-400) Neutrophils (%) (Auto) 75 % (31-73) Lymphocytes (%) (Auto) 15 % (24-48) Monocytes (%) (Auto) 7 % (0-9) Eosinophils (%) (Auto) 3 % (0-3) Basophils (%) (Auto) 0 % (0-3) Neutrophils # (Auto) 11.8 x10^3/uL (1.8-7.7) Lymphocytes # (Auto) 2.4 x10^3/uL (1.0-4.8) Monocytes # (Auto) 1.2 x10^3/uL (0.0-1.1) Eosinophils # (Auto) 0.4 x10^3/uL (0.0-0.7) Basophils # (Auto) 0.0 x10^3/uL (0.0-0.2) Erythrocyte Sedimentation Rate 58 (0-15) Sodium Level 140 mmol/L (136-145) Potassium Level 3.2 mmol/L (3.5-5.1) Chloride Level 101 mmol/L (98-107) Carbon Dioxide Level 32 mmol/L (21-32) Anion Gap 7 (6-14) Blood Urea Nitrogen 12 mg/dL (8-26) Creatinine 1.1 mg/dL (0.7-1.3) Estimated GFR (Cockcroft-Gault) 83.8 BUN/Creatinine Ratio 11 (6-20) Glucose Level 113 mg/dL (70-99) Lactic Acid Level 1.0 mmol/L (0.4-2.0) Calcium Level 9.2 mg/dL (8.5-10.1) Total Bilirubin 0.4 mg/dL (0.2-1.0) Aspartate Amino Transf (AST/SGOT) 44 U/L (15-37) Alanine Aminotransferase (ALT/SGPT) 39 U/L (16-63) Alkaline Phosphatase 80 U/L (46-116) C-Reactive Protein, Quantitative 77.8 mg/L (0-3.3) Total Protein 7.8 g/dL (6.4-8.2) Albumin 3.3 g/dL (3.4-5.0) Albumin/Globulin Ratio 0.7 (1.0-1.7) Procalcitonin < 0.05 ng/mL (0.00-0.10) Laboratory Tests Test 03/08/21 17:47 White Blood Count 15.8 x10^3/uL (4.0-11.0) Red Blood Count 4.38 x10^6/uL (4.30-5.70) Hemoglobin 12.2 g/dL (13.0-17.5) Hematocrit 37.3 % (39.0-53.0) Mean Corpuscular Volume 85 fL (79-100) Mean Corpuscular Hemoglobin 28 pg (25-35) Mean Corpuscular Hemoglobin Concent 33 g/dL (31-37) Red Cell Distribution Width 14.5 % (11.5-14.5) Platelet Count 299 x10^3/uL (140-400) Neutrophils (%) (Auto) 75 % (31-73) Lymphocytes (%) (Auto) 15 % (24-48) Monocytes (%) (Auto) 7 % (0-9) Eosinophils (%) (Auto) 3 % (0-3) Basophils (%) (Auto) 0 % (0-3) Neutrophils # (Auto) 11.8 x10^3/uL (1.8-7.7) Lymphocytes # (Auto) 2.4 x10^3/uL (1.0-4.8) Monocytes # (Auto) 1.2 x10^3/uL (0.0-1.1) Eosinophils # (Auto) 0.4 x10^3/uL (0.0-0.7) Basophils # (Auto) 0.0 x10^3/uL (0.0-0.2) Erythrocyte Sedimentation Rate 58 (0-15) Sodium Level 140 mmol/L (136-145) Potassium Level 3.2 mmol/L (3.5-5.1) Chloride Level 101 mmol/L (98-107) Carbon Dioxide Level 32 mmol/L (21-32) Anion Gap 7 (6-14) Blood Urea Nitrogen 12 mg/dL (8-26) Creatinine 1.1 mg/dL (0.7-1.3) Estimated GFR (Cockcroft-Gault) 83.8 BUN/Creatinine Ratio 11 (6-20) Glucose Level 113 mg/dL (70-99) Lactic Acid Level 1.0 mmol/L (0.4-2.0) Calcium Level 9.2 mg/dL (8.5-10.1) Total Bilirubin 0.4 mg/dL (0.2-1.0) Aspartate Amino Transf (AST/SGOT) 44 U/L (15-37) Alanine Aminotransferase (ALT/SGPT) 39 U/L (16-63) Alkaline Phosphatase 80 U/L (46-116) C-Reactive Protein, Quantitative 77.8 mg/L (0-3.3) Total Protein 7.8 g/dL (6.4-8.2) Albumin 3.3 g/dL (3.4-5.0) Albumin/Globulin Ratio 0.7 (1.0-1.7) Procalcitonin < 0.05 ng/mL (0.00-0.10) Assessment/Plan Assessment/Plan gluteal cellulitis CT no abscess appears draining continue IV abx, warm compress TOY MARTINEZ MD 03/09/21 1551: CONSULT Assessment/Plan Assessment/Plan Pt seen and examined. Agree with Jennifer Oliver's note Pt reports right buttock pain, draining wound with drainage and open, no obvious necrotic tissue agree with wound care and abx. no surgical plans currently Thanks for consult! CLARA OLIVER SENIOR QUALITY ENGINEER Mar 09, 2021 09:13 TOY MARTINEZ MD Mar 09, 2021 15:51
--- NOTE | 2021-03-09 10:55 | PDOC ---
PROGRESS NOTES Date of Service: DATE: 03/09/21 TIME: 10:55 Chief Complaint Chief Complaint IMPRESSION: 1. Marked infiltration right gluteal region may represent cellulitis. No discrete associated loculated fluid collection or abscess is seen. 2. Prominent pelvic lymph nodes and inguinal lymph nodes may be reactive, recommend close attention on follow-up. VTE Prophylaxis Ordered VTE Prophylaxis Devices: Yes VTE Pharmacological Prophylaxi: No Assessment/Plan gluteal cellulitis ACUTE CT no abscess appears draining continue IV abx, warm compress Normocytic anemia HTN HLD Depression GERD Moderate protein-caloric malnutrition Morbid obesity Plan:=== admit general surgery consultation Continue IV vancomycin IV pain management Resume home medications FEN - Cardiac diet; PPX - Heparin FULL CODE Dispo - inpatient for above d/w RN 03-09 Justifications for Admission Justifications for Admission Other Justification History of Present Illness History of Present Illness Identification/Chief Complaint Chief Complaint Abscess Source Source: Chart review, Patient History of Present Illness History of Present Illness Patient is a 55-year-old male who presents from [facility] for evaluation of a right gluteal abscess that is been present since March 01, he states he has been treated with Bactrim twice daily without improvement. States that since has been within purulent fluid, and is tender to touch. He denies any fever, nausea, or vomiting. Labs on admission showed WBC 15.8, hemoglobin 12.2, hematocrit 37.3, potassium 3.2, CRP 77.8, albumin 3.3. CT abdomen/pelvis on admission showed marked infiltration right gluteal region may represent cellulitis but no discrete associated loculated fluid collection. He received IV fluids and IV antibiotics in the ED. Will admit patient for further medical management. Past Medical History Cardiovascular: HTN Pulmonary: Asthma Musculoskeletal: Osteoarthritis Endocrine: Diabetes Past Surgical History Past Surgical History Denies surgical history Family History Family History: Diabetes, Hypertension Social History Smoke: No ALCOHOL: none Drugs: None Current Medications Current Medications Current Medications Sodium Chloride 1,000 ml @ 2,340 mls/hr Q26M IV Last administered on 03/08/21at 17:59; Start 03/08/21 at 17:45; Stop 03/08/21 at 18:45; Status DC Piperacillin Sod/ Tazobactam Sod 4.5 gm/Sodium Chloride 100 ml @ 200 mls/hr 1X ONCE IV Last administered on 03/08/21at 18:01; Start 03/08/21 at 18:00; Stop 03/08/21 at 18:29; Status DC Vancomycin HCl (Vanco Per Pharmacy) 1 each 1X ONCE MC Last administered on 03/08/21at 17:45; Start 03/08/21 at 17:45; Stop 03/08/21 at 19:22; Status DC Morphine Sulfate (Morphine Sulfate) 4 mg PRN Q15MIN PRN IV/SQ PAIN GREATER THAN 3/10 Last administered on 03/08/21at 18:00; Start 03/08/21 at 17:45; Stop 03/09/21 at 17:44 Diphtheria/ Tetanus/Acell Pertussis (ADACEL TDap SYRINGE) 0.5 ml ONCE ONCE VAX IM Last administered on 03/08/21at 18:01; Start 03/08/21 at 17:45; Stop 03/08/21 at 17:47; Status DC Vancomycin HCl 2 gm/Sodium Chloride 500 ml @ 250 mls/hr 1X ONCE IV Last administered on 03/08/21at 19:00; Start 03/08/21 at 19:00; Stop 03/08/21 at 20:59 Iohexol (Omnipaque 300 Mg/ml) 75 ml 1X ONCE IV Last administered on 03/08/21at 19:03; Start 03/08/21 at 18:45; Stop 03/08/21 at 19:19; Status DC Vancomycin HCl 1.5 gm/Sodium Chloride 500 ml @ 250 mls/hr Q8H IV ; Start 03/09/21 at 03:00 Vancomycin HCl (Vancomycin Trough Level) 1 each 1X ONCE MC ; Start 03/09/21 at 18:30; Stop 03/09/21 at 18:31 Morphine Sulfate (Morphine Sulfate) 5 mg PRN Q2HR PRN IV SEVERE PAIN 7-10; Start 03/08/21 at 19:30; Status UNV Ondansetron HCl (Zofran) 4 mg PRN Q6HRS PRN IVP NAUSEA/VOMITING; Start 03/08/21 at 19:30; Status UNV Al Hydroxide/Mg Hydroxide (Mylanta Plus Xs) 30 ml PRN Q3HRS PRN PO HEARTBURN / GAS; Start 03/08/21 at 19:30; Status UNV Calcium Carbonate/ Glycine (Tums) 500 mg PRN Q3HRS PRN PO UPSET STOMACH; Start 03/08/21 at 19:30; Status UNV Zolpidem Tartrate (Ambien) 5 mg PRN QHS PRN PO INSOMNIA, MAY REPEAT IN 1HR; Start 03/08/21 at 19:30; Status UNV Acetaminophen (Tylenol) 650 mg PRN Q6HRS PRN PO Headaches, Temp > 101.5F; Start 03/08/21 at 19:30; Status UNV Magnesium Hydroxide (Milk Of Magnesia) 2,400 mg PRN Q12HR PRN PO CONSTIPATION; Start 03/08/21 at 19:30; Status UNV Heparin Sodium (Porcine) (Heparin Sodium) 5,000 unit Q8HRS SQ ; Start 03/08/21 at 22:00; Status UNV Active Scripts Active Reported Milk Of Magnesia (Magnesium Hydroxide) 400 Mg/5 Ml Oral.susp 400 Mg PO BID Montelukast Sodium Tablet (Montelukast Sodium) 10 Mg Tablet 1 Tab PO DAILY Norvasc (Amlodipine Besylate) 10 Mg Tablet 10 Mg PO DAILY Naproxen 500 Mg Tablet.dr 1 Tab PO BID Lisinopril 20 Mg Tablet 20 Mg PO BID Lipitor (Atorvastatin Calcium) 20 Mg Tablet 1 Tab PO DAILY Glucophage (Metformin Hcl) 1,000 Mg Tablet 1,000 Mg PO BIDWMEALS Dulcolax (Bisacodyl) 5 Mg Tablet.dr 5 Mg PO PRN DAILY PRN Chlorthalidone 25 Mg Tablet 1 Tab PO DAILY Alvesco (Ciclesonide) 6.1 Gm Hfa.aer.ad 6.1 Gm IH Aldactone (Spironolactone) 50 Mg Tablet 1 Tab PO DAILY Proair Hfa Inhaler (Albuterol Sulfate) 8.5 Gm Hfa.aer.ad 2 Puff INH Q4HRS PRN Allergies Allergies: Coded Allergies: No Known Drug Allergies (Unverified , 11/24/16) ROS Review of System GENERAL: No history of weight change, weakness or fevers. SKIN: No bruising, hair changes or rashes. EYES: No blurred, double or loss of vision. NOSE AND THROAT: No history of nosebleeds, hoarseness or sore throat. HEART: Denies chest pain, denies palpitations. LUNGS: Denies cough, hemoptysis, wheezing or shortness of breath. GASTROINTESTINAL: Denies nausea, vomiting, abdominal pain. GENITOURINARY: Denies dysuria, frequency, urgency, hematuria. NEUROLOGIC: Denies history of numbness, tingling, tremor or weakness. PSYCHIATRIC: Denies anxiety, denies depression. ENDOCRINE: No history of heat or cold intolerance, polyuria or polydipsia. EXTREMITIES: Denies muscle weakness, joint pain, pain on walking or stiffness. SKIN: Abscess to right hip Vitals Vitals Vital Signs Date Time Temp Pulse Resp B/P (MAP) Pulse Ox O2 Delivery O2 Flow Rate FiO2 03/09/21 09:08 16 Room Air 03/09/21 08:22 82 131/72 03/09/21 07:00 98.0 94 98.0 Physical Exam General: Alert, Oriented X3, Cooperative, No acute distress Heart: Regular rate, Normal S1, Normal S2 Lungs: Clear Abdomen: Normal bowel sounds, Soft, No tenderness Extremities: No clubbing, No cyanosis Skin: Other (gluteal area with induration, drainage, tender to touch) Labs LABS Laboratory Tests Test 03/08/21 17:47 White Blood Count 15.8 x10^3/uL (4.0-11.0) Red Blood Count 4.38 x10^6/uL (4.30-5.70) Hemoglobin 12.2 g/dL (13.0-17.5) Hematocrit 37.3 % (39.0-53.0) Mean Corpuscular Volume 85 fL (79-100) Mean Corpuscular Hemoglobin 28 pg (25-35) Mean Corpuscular Hemoglobin Concent 33 g/dL (31-37) Red Cell Distribution Width 14.5 % (11.5-14.5) Platelet Count 299 x10^3/uL (140-400) Neutrophils (%) (Auto) 75 % (31-73) Lymphocytes (%) (Auto) 15 % (24-48) Monocytes (%) (Auto) 7 % (0-9) Eosinophils (%) (Auto) 3 % (0-3) Basophils (%) (Auto) 0 % (0-3) Neutrophils # (Auto) 11.8 x10^3/uL (1.8-7.7) Lymphocytes # (Auto) 2.4 x10^3/uL (1.0-4.8) Monocytes # (Auto) 1.2 x10^3/uL (0.0-1.1) Eosinophils # (Auto) 0.4 x10^3/uL (0.0-0.7) Basophils # (Auto) 0.0 x10^3/uL (0.0-0.2) Erythrocyte Sedimentation Rate 58 (0-15) Sodium Level 140 mmol/L (136-145) Potassium Level 3.2 mmol/L (3.5-5.1) Chloride Level 101 mmol/L (98-107) Carbon Dioxide Level 32 mmol/L (21-32) Anion Gap 7 (6-14) Blood Urea Nitrogen 12 mg/dL (8-26) Creatinine 1.1 mg/dL (0.7-1.3) Estimated GFR (Cockcroft-Gault) 83.8 BUN/Creatinine Ratio 11 (6-20) Glucose Level 113 mg/dL (70-99) Lactic Acid Level 1.0 mmol/L (0.4-2.0) Calcium Level 9.2 mg/dL (8.5-10.1) Total Bilirubin 0.4 mg/dL (0.2-1.0) Aspartate Amino Transf (AST/SGOT) 44 U/L (15-37) Alanine Aminotransferase (ALT/SGPT) 39 U/L (16-63) Alkaline Phosphatase 80 U/L (46-116) C-Reactive Protein, Quantitative 77.8 mg/L (0-3.3) Total Protein 7.8 g/dL (6.4-8.2) Albumin 3.3 g/dL (3.4-5.0) Albumin/Globulin Ratio 0.7 (1.0-1.7) Procalcitonin < 0.05 ng/mL (0.00-0.10) Assessment and Plan Assessmemt and Plan Problems Medical Problems: (1) Cellulitis of buttock, right Status: Acute Comment Review of Relevant I have reviewed the following items gerri (where applicable) has been applied. Labs Laboratory Tests Test 03/08/21 17:47 White Blood Count 15.8 x10^3/uL (4.0-11.0) Red Blood Count 4.38 x10^6/uL (4.30-5.70) Hemoglobin 12.2 g/dL (13.0-17.5) Hematocrit 37.3 % (39.0-53.0) Mean Corpuscular Volume 85 fL (79-100) Mean Corpuscular Hemoglobin 28 pg (25-35) Mean Corpuscular Hemoglobin Concent 33 g/dL (31-37) Red Cell Distribution Width 14.5 % (11.5-14.5) Platelet Count 299 x10^3/uL (140-400) Neutrophils (%) (Auto) 75 % (31-73) Lymphocytes (%) (Auto) 15 % (24-48) Monocytes (%) (Auto) 7 % (0-9) Eosinophils (%) (Auto) 3 % (0-3) Basophils (%) (Auto) 0 % (0-3) Neutrophils # (Auto) 11.8 x10^3/uL (1.8-7.7) Lymphocytes # (Auto) 2.4 x10^3/uL (1.0-4.8) Monocytes # (Auto) 1.2 x10^3/uL (0.0-1.1) Eosinophils # (Auto) 0.4 x10^3/uL (0.0-0.7) Basophils # (Auto) 0.0 x10^3/uL (0.0-0.2) Erythrocyte Sedimentation Rate 58 (0-15) Sodium Level 140 mmol/L (136-145) Potassium Level 3.2 mmol/L (3.5-5.1) Chloride Level 101 mmol/L (98-107) Carbon Dioxide Level 32 mmol/L (21-32) Anion Gap 7 (6-14) Blood Urea Nitrogen 12 mg/dL (8-26) Creatinine 1.1 mg/dL (0.7-1.3) Estimated GFR (Cockcroft-Gault) 83.8 BUN/Creatinine Ratio 11 (6-20) Glucose Level 113 mg/dL (70-99) Lactic Acid Level 1.0 mmol/L (0.4-2.0) Calcium Level 9.2 mg/dL (8.5-10.1) Total Bilirubin 0.4 mg/dL (0.2-1.0) Aspartate Amino Transf (AST/SGOT) 44 U/L (15-37) Alanine Aminotransferase (ALT/SGPT) 39 U/L (16-63) Alkaline Phosphatase 80 U/L (46-116) C-Reactive Protein, Quantitative 77.8 mg/L (0-3.3) Total Protein 7.8 g/dL (6.4-8.2) Albumin 3.3 g/dL (3.4-5.0) Albumin/Globulin Ratio 0.7 (1.0-1.7) Procalcitonin < 0.05 ng/mL (0.00-0.10) Laboratory Tests Test 03/08/21 17:47 White Blood Count 15.8 x10^3/uL (4.0-11.0) Red Blood Count 4.38 x10^6/uL (4.30-5.70) Hemoglobin 12.2 g/dL (13.0-17.5) Hematocrit 37.3 % (39.0-53.0) Mean Corpuscular Volume 85 fL (79-100) Mean Corpuscular Hemoglobin 28 pg (25-35) Mean Corpuscular Hemoglobin Concent 33 g/dL (31-37) Red Cell Distribution Width 14.5 % (11.5-14.5) Platelet Count 299 x10^3/uL (140-400) Neutrophils (%) (Auto) 75 % (31-73) Lymphocytes (%) (Auto) 15 % (24-48) Monocytes (%) (Auto) 7 % (0-9) Eosinophils (%) (Auto) 3 % (0-3) Basophils (%) (Auto) 0 % (0-3) Neutrophils # (Auto) 11.8 x10^3/uL (1.8-7.7) Lymphocytes # (Auto) 2.4 x10^3/uL (1.0-4.8) Monocytes # (Auto) 1.2 x10^3/uL (0.0-1.1) Eosinophils # (Auto) 0.4 x10^3/uL (0.0-0.7) Basophils # (Auto) 0.0 x10^3/uL (0.0-0.2) Erythrocyte Sedimentation Rate 58 (0-15) Sodium Level 140 mmol/L (136-145) Potassium Level 3.2 mmol/L (3.5-5.1) Chloride Level 101 mmol/L (98-107) Carbon Dioxide Level 32 mmol/L (21-32) Anion Gap 7 (6-14) Blood Urea Nitrogen 12 mg/dL (8-26) Creatinine 1.1 mg/dL (0.7-1.3) Estimated GFR (Cockcroft-Gault) 83.8 BUN/Creatinine Ratio 11 (6-20) Glucose Level 113 mg/dL (70-99) Lactic Acid Level 1.0 mmol/L (0.4-2.0) Calcium Level 9.2 mg/dL (8.5-10.1) Total Bilirubin 0.4 mg/dL (0.2-1.0) Aspartate Amino Transf (AST/SGOT) 44 U/L (15-37) Alanine Aminotransferase (ALT/SGPT) 39 U/L (16-63) Alkaline Phosphatase 80 U/L (46-116) C-Reactive Protein, Quantitative 77.8 mg/L (0-3.3) Total Protein 7.8 g/dL (6.4-8.2) Albumin 3.3 g/dL (3.4-5.0) Albumin/Globulin Ratio 0.7 (1.0-1.7) Procalcitonin < 0.05 ng/mL (0.00-0.10) Medications Current Medications Sodium Chloride 1,000 ml @ 2,340 mls/hr Q26M IV Last administered on 03/08/21at 17:59; Start 03/08/21 at 17:45; Stop 03/08/21 at 18:45; Status DC Piperacillin Sod/ Tazobactam Sod 4.5 gm/Sodium Chloride 100 ml @ 200 mls/hr 1X ONCE IV Last administered on 03/08/21at 18:01; Start 03/08/21 at 18:00; Stop 03/08/21 at 18:29; Status DC Vancomycin HCl (Vanco Per Pharmacy) 1 each 1X ONCE MC Last administered on 03/08/21at 17:45; Start 03/08/21 at 17:45; Stop 03/08/21 at 19:22; Status DC Morphine Sulfate (Morphine Sulfate) 4 mg PRN Q15MIN PRN IV/SQ PAIN GREATER THAN 3/10 Last administered on 03/08/21at 20:31; Start 03/08/21 at 17:45; Stop 03/09/21 at 07:28; Status DC Diphtheria/ Tetanus/Acell Pertussis (ADACEL TDap SYRINGE) 0.5 ml ONCE ONCE VAX IM Last administered on 03/08/21at 18:01; Start 03/08/21 at 17:45; Stop 03/08/21 at 17:47; Status DC Vancomycin HCl 2 gm/Sodium Chloride 500 ml @ 250 mls/hr 1X ONCE IV Last administered on 03/08/21at 19:00; Start 03/08/21 at 19:00; Stop 03/08/21 at 20:59; Status DC Iohexol (Omnipaque 300 Mg/ml) 75 ml 1X ONCE IV Last administered on 03/08/21at 19:03; Start 03/08/21 at 18:45; Stop 03/08/21 at 19:19; Status DC Vancomycin HCl 1.5 gm/Sodium Chloride 500 ml @ 250 mls/hr Q8H IV Last administered on 03/09/21at 02:57; Start 03/09/21 at 03:00 Vancomycin HCl (Vancomycin Trough Level) 1 each 1X ONCE MC ; Start 03/09/21 at 18:30; Stop 03/09/21 at 18:31 Morphine Sulfate (Morphine Sulfate) 5 mg PRN Q2HR PRN IV SEVERE PAIN 7-10 Last administered on 03/09/21at 09:08; Start 03/08/21 at 19:30 Ondansetron HCl (Zofran) 4 mg PRN Q6HRS PRN IVP NAUSEA/VOMITING; Start 03/08/21 at 19:30 Al Hydroxide/Mg Hydroxide (Mylanta Plus Xs) 30 ml PRN Q3HRS PRN PO HEARTBURN / GAS; Start 03/08/21 at 19:30 Calcium Carbonate/ Glycine (Tums) 500 mg PRN Q3HRS PRN PO UPSET STOMACH; Start 03/08/21 at 19:30 Zolpidem Tartrate (Ambien) 5 mg PRN QHS PRN PO INSOMNIA, MAY REPEAT IN 1HR; Start 03/08/21 at 19:30 Acetaminophen (Tylenol) 650 mg PRN Q6HRS PRN PO Headaches, Temp > 101.5F; Start 03/08/21 at 19:30 Magnesium Hydroxide (Milk Of Magnesia) 2,400 mg PRN Q12HR PRN PO CONSTIPATION; Start 03/08/21 at 19:30 Heparin Sodium (Porcine) (Heparin Sodium) 5,000 unit Q8HRS SQ Last administered on 03/09/21at 08:34; Start 03/08/21 at 22:00 Vancomycin HCl (Vanco Per Pharmacy) 1 each PRN DAILY PRN MC SEE COMMENTS; Start 03/08/21 at 19:45 Ondansetron HCl (Zofran) 4 mg PRN Q8HRS PRN IVP NAUSEA/VOMITING; Start 03/08/21 at 21:00; Stop 03/09/21 at 07:28; Status DC Morphine Sulfate (Morphine Sulfate) 4 mg PRN Q2HR PRN IVP PAIN; Start 03/08/21 at 21:00; Stop 03/09/21 at 07:28; Status DC Acetaminophen (Tylenol) 650 mg PRN Q4HRS PRN PO FEVER > 100.3'F; Start 03/08/21 at 21:00; Stop 03/09/21 at 07:28; Status DC Aspirin (Aspirin Chewable) 81 mg DAILY PO Last administered on 03/09/21at 08:22; Start 03/09/21 at 09:00 Atorvastatin Calcium (Lipitor) 20 mg DAILY PO Last administered on 03/09/21at 08:21; Start 03/09/21 at 09:00 Bisacodyl (Dulcolax Tab) 5 mg PRN DAILY PRN PO CONSTIPATION, 2nd CHOICE; Start 03/09/21 at 07:30 Cetirizine HCl (ZyrTEC) 10 mg DAILY PO Last administered on 03/09/21at 08:22; Start 03/09/21 at 09:00 Duloxetine HCl (Cymbalta) 30 mg QHS PO ; Start 03/09/21 at 21:00 Lisinopril (Prinivil) 20 mg BID PO Last administered on 03/09/21at 08:22; Start 03/09/21 at 09:00 Tamsulosin HCl (Flomax) 0.8 mg DAILY PO Last administered on 03/09/21at 08:21; Start 03/09/21 at 09:00 Active Scripts Active Reported Aspirin 81 Mg Tab.chew 1 Tab PO DAILY Zyrtec (Cetirizine Hcl) 10 Mg Tablet 1 Tab PO DAILY Protonix (Pantoprazole Sodium) 20 Mg Tablet. 40 Mg PO DAILY Flomax (Tamsulosin Hcl) 0.4 Mg Cap.er.24h 2 Cap PO DAILY Cymbalta (Duloxetine Hcl) 30 Mg Capsule.dr 30 Mg PO QHS Milk Of Magnesia (Magnesium Hydroxide) 400 Mg/5 Ml Oral.susp 400 Mg PO BID Montelukast Sodium Tablet (Montelukast Sodium) 10 Mg Tablet 1 Tab PO DAILY Norvasc (Amlodipine Besylate) 10 Mg Tablet 10 Mg PO DAILY Naproxen 500 Mg Tablet. 1 Tab PO BID Lisinopril 20 Mg Tablet 20 Mg PO BID Lipitor (Atorvastatin Calcium) 20 Mg Tablet 1 Tab PO DAILY Glucophage (Metformin Hcl) 1,000 Mg Tablet 1,000 Mg PO BIDWMEALS Dulcolax (Bisacodyl) 5 Mg Tablet. 5 Mg PO PRN DAILY PRN Chlorthalidone (Chlorthalidone) 25 Mg Tablet 1 Tab PO DAILY Alvesco (Ciclesonide) 6.1 Gm Hfa.aer.ad 6.1 Gm IH Aldactone (Spironolactone) 50 Mg Tablet 1 Tab PO DAILY Proair Hfa Inhaler (Albuterol Sulfate) 8.5 Gm Hfa.aer.ad 2 Puff INH Q4HRS PRN Vitals/I & O Vital Sign - Last 24 Hours 03/08/21 03/08/21 03/08/21 03/08/21 17:15 18:00 19:20 19:50 Temp 98.4 98.4 Pulse 85 86 80 Resp 29 20 20 B/P (MAP) 147/82 (81) 180/91 (120) 149/65 (93) Pulse Ox 98 98 97 97 O2 Delivery Room Air Room Air Room Air Room Air 03/08/21 03/08/21 03/08/21 03/09/21 20:20 20:31 23:00 03:00 Temp 98.4 98.8 98.4 98.8 Pulse 83 83 75 Resp 20 16 18 18 B/P (MAP) 172/122 (139) 143/73 (96) 122/66 (84) Pulse Ox 97 99 98 98 O2 Delivery Room Air Room Air Room Air 03/09/21 03/09/21 03/09/21 07:00 08:22 09:08 Temp 98.0 98.0 Pulse 82 82 Resp 18 16 B/P (MAP) 131/72 (91) 131/72 Pulse Ox 94 O2 Delivery Room Air Room Air Intake and Output 03/08/21 03/08/2103/09/21 15:00 23:00 07:00 Intake Total 1340 ml Output Total 300 ml Balance 1340 ml -300 ml Justicifation of Admission Dx: Justifications for Admission: Justification of Admission Dx: Yes Cellulitis: Cellulitis PAUL RIDER MD Mar 09, 2021 10:55
[2021-03-09 11:00] VITALS: BP 131/67
[2021-03-09] MEDS: VANCOMYCIN PER PHARMACY MC PRN (14:15)
[2021-03-09 15:00] VITALS: BP 90/50
[2021-03-09 19:00] VITALS: BP 123/77
--- NOTE | 2021-03-09 19:32 | NUR ---
Pt assessment completed by night nurse on admission. I agree with assessment, no changes throughout shift.
[2021-03-09 20:39] LABS: VANC TR 13.6 mcg/mL (10.0-20.0)
[2021-03-09] MEDS: DULoxetine HCL 30 MG CAPSULE.DR PO SCH (21:36)
[2021-03-09 23:00] VITALS: BP 127/76
[2021-03-10] MEDS: VANCOMYCIN PER PHARMACY MC PRN ×2 (00:22→09:28)
--- NOTE | 2021-03-10 00:30 | NUR ---
Pharmacy Vancomycin Dosing Note S:Consulted to monitor and dose vancomycin started 03/08/21. O:RAY CHAPPELL is a 55 year old M with Abscess . Height: 6 feet, 0 inches Weight: 166.8 kg [place] Body Weight: 77.60 Adjusted Body Weight: 113.28 Dosing Weight: Actual Other Antibiotics: ZOSYN 4.5 G X 1 03/08 LABS: Last BUN: 12 Last Creatinine: 1.1 Creatinine Clearance: 120 mL/min Last WBC: 15.8 Last Procalcitonin: <0.05 Tmax (past 24 hours): 98.5 Microbiology: I/O: 1340/300 Drug Levels: Last Trough level: 13.6, DRAWN LATE, TT~16 on 03/10/21 at 2000 Last dose given 03/09/21 at 2136 Vancomycin Dosing: Loading Dose: 2000 mg x1 Dosing Weight: Actual Target Trough: 10-20 A: Based on: THERAPEUTIC LEVEL, P: 1. CONTINUE Vancomycin 1500 mg IV q8h 2. Follow up Trough level NEEDED, 3. Pharmacy will continue to monitor, follow and adjust therapy as needed. MINNIE LOYOLA RPH, 03/10/21 0030
[2021-03-10 03:00] VITALS: BP 131/90
[2021-03-10] MEDS: VANCOMYCIN 1.5 GM in IV NORMAL SALINE 500ML BAG 500 ML IV SCH ×3 (03:39→18:30)
[2021-03-10 05:21] LABS: BASO % 0 % (0-3); EOS # 0.5 x10^3/uL (0.0-0.7); EOS % 4 % (0-3); HEMATOCRIT 36.1 % (39.0-53.0); LYMPH # 2.3 x10^3/uL (1.0-4.8); LYMPH % 20 % (24-48); MEAN CORPUSCULAR HEMOGLOBIN 29 pg (25-35); MEAN CORPUSCULAR HGB CONC 33 g/dL (31-37); MEAN CORPUSCULAR VOLUME 86 fL (79-100); MONO # 1.1 x10^3/uL (0.0-1.1); MONO % 9 % (0-9); NEUT # 7.7 x10^3/uL (1.8-7.7); NEUT % 66 % (31-73); PLATELET COUNT 307 x10^3/uL (140-400); RED BLOOD COUNT 4.19 x10^6/uL (4.30-5.70); RED CELL DISTRIBUTION WIDTH 14.7 % (11.5-14.5); WHITE BLOOD COUNT 11.7 x10^3/uL (4.0-11.0)
[2021-03-10 05:28] LABS: CALCIUM 8.9 mg/dL (8.5-10.1); CREATININE 0.9 mg/dL (0.7-1.3); GFR 105.6; POTASSIUM 3.5 mmol/L (3.5-5.1)
[2021-03-10] MEDS: HEPARIN for SUB-Q USE 5,000 UNIT/ML VIAL. SQ SCH ×3 (05:56→22:02)
[2021-03-10 06:36] VITALS: BP 134/73
[2021-03-10] MEDS: ASPIRIN CHEWABLE 81 MG TABLET. PO SCH (08:15)
[2021-03-10] MEDS: CETIRIZINE HCL 10 MG TABLET. PO SCH (08:15)
[2021-03-10] MEDS: LISINOPRIL 20 MG TABLET PO SCH ×2 (08:15→21:58)
[2021-03-10] MEDS: ATORVASTATIN CALCIUM 20 MG TABLET PO SCH (08:15)
[2021-03-10] MEDS: MORPHINE SULFATE 10 MG/ML VIAL. IV PRN ×3 (08:15→19:51)
[2021-03-10] MEDS: TAMSULOSIN 0.4 MG CAP.ER.24H. PO SCH (08:15)
--- NOTE | 2021-03-10 08:36 | PDOC ---
SURGICAL PROGRESS NOTE DATE: 03/10/21 TIME: 08:35 Subjective some improvement in pain tolerating diet Vital Signs Vital Signs Date Time Temp Pulse Resp B/P (MAP) Pulse Ox O2 Delivery O2 Flow Rate FiO2 03/10/21 08:15 81 134/73 03/10/21 08:15 Room Air 03/10/21 06:36 97.9 18 95 97.9 I&O Intake and Output 03/10/21 07:00 Intake Total 740 ml Balance 740 ml Intake Oral 240 ml IV Total 500 ml # Voids 2 General: Alert, Oriented X3, Cooperative Skin: Other (wound with drainage, no tissue necrosis) Labs Laboratory Tests Test 03/08/21 17:47 03/09/21 20:00 03/10/21 04:07 White Blood Count 15.8 x10^3/uL (4.0-11.0) 11.7 x10^3/uL (4.0-11.0) Red Blood Count 4.38 x10^6/uL (4.30-5.70) 4.19 x10^6/uL (4.30-5.70) Hemoglobin 12.2 g/dL (13.0-17.5) 12.0 g/dL (13.0-17.5) Hematocrit 37.3 % (39.0-53.0) 36.1 % (39.0-53.0) Mean Corpuscular Volume 85 fL (79-100) 86 fL (79-100) Mean Corpuscular Hemoglobin 28 pg (25-35) 29 pg (25-35) Mean Corpuscular Hemoglobin Concent 33 g/dL (31-37) 33 g/dL (31-37) Red Cell Distribution Width 14.5 % (11.5-14.5) 14.7 % (11.5-14.5) Platelet Count 299 x10^3/uL (140-400) 307 x10^3/uL (140-400) Neutrophils (%) (Auto) 75 % (31-73) 66 % (31-73) Lymphocytes (%) (Auto) 15 % (24-48) 20 % (24-48) Monocytes (%) (Auto) 7 % (0-9) 9 % (0-9) Eosinophils (%) (Auto) 3 % (0-3) 4 % (0-3) Basophils (%) (Auto) 0 % (0-3) 0 % (0-3) Neutrophils # (Auto) 11.8 x10^3/uL (1.8-7.7) 7.7 x10^3/uL (1.8-7.7) Lymphocytes # (Auto) 2.4 x10^3/uL (1.0-4.8) 2.3 x10^3/uL (1.0-4.8) Monocytes # (Auto) 1.2 x10^3/uL (0.0-1.1) 1.1 x10^3/uL (0.0-1.1) Eosinophils # (Auto) 0.4 x10^3/uL (0.0-0.7) 0.5 x10^3/uL (0.0-0.7) Basophils # (Auto) 0.0 x10^3/uL (0.0-0.2) 0.0 x10^3/uL (0.0-0.2) Erythrocyte Sedimentation Rate 58 (0-15) Sodium Level 140 mmol/L (136-145) 138 mmol/L (136-145) Potassium Level 3.2 mmol/L (3.5-5.1) 3.5 mmol/L (3.5-5.1) Chloride Level 101 mmol/L (98-107) 102 mmol/L (98-107) Carbon Dioxide Level 32 mmol/L (21-32) 31 mmol/L (21-32) Anion Gap 7 (6-14) 5 (6-14) Blood Urea Nitrogen 12 mg/dL (8-26) 10 mg/dL (8-26) Creatinine 1.1 mg/dL (0.7-1.3) 0.9 mg/dL (0.7-1.3) Estimated GFR (Cockcroft-Gault) 83.8 105.6 BUN/Creatinine Ratio 11 (6-20) Glucose Level 113 mg/dL (70-99) 93 mg/dL (70-99) Lactic Acid Level 1.0 mmol/L (0.4-2.0) Calcium Level 9.2 mg/dL (8.5-10.1) 8.9 mg/dL (8.5-10.1) Total Bilirubin 0.4 mg/dL (0.2-1.0) Aspartate Amino Transf (AST/SGOT) 44 U/L (15-37) Alanine Aminotransferase (ALT/SGPT) 39 U/L (16-63) Alkaline Phosphatase 80 U/L (46-116) C-Reactive Protein, Quantitative 77.8 mg/L (0-3.3) Total Protein 7.8 g/dL (6.4-8.2) Albumin 3.3 g/dL (3.4-5.0) Albumin/Globulin Ratio 0.7 (1.0-1.7) Procalcitonin < 0.05 ng/mL (0.00-0.10) Vancomycin Level Trough 13.6 mcg/mL (10.0-20.0) Vancomycin Last Dose Date 03/09/21 Vancomycin Last Dose Time 1100 Laboratory Tests Test 03/09/21 20:00 03/10/21 04:07 Vancomycin Level Trough 13.6 mcg/mL (10.0-20.0) Vancomycin Last Dose Date 03/09/21 Vancomycin Last Dose Time 1100 White Blood Count 11.7 x10^3/uL (4.0-11.0) Red Blood Count 4.19 x10^6/uL (4.30-5.70) Hemoglobin 12.0 g/dL (13.0-17.5) Hematocrit 36.1 % (39.0-53.0) Mean Corpuscular Volume 86 fL (79-100) Mean Corpuscular Hemoglobin 29 pg (25-35) Mean Corpuscular Hemoglobin Concent 33 g/dL (31-37) Red Cell Distribution Width 14.7 % (11.5-14.5) Platelet Count 307 x10^3/uL (140-400) Neutrophils (%) (Auto) 66 % (31-73) Lymphocytes (%) (Auto) 20 % (24-48) Monocytes (%) (Auto) 9 % (0-9) Eosinophils (%) (Auto) 4 % (0-3) Basophils (%) (Auto) 0 % (0-3) Neutrophils # (Auto) 7.7 x10^3/uL (1.8-7.7) Lymphocytes # (Auto) 2.3 x10^3/uL (1.0-4.8) Monocytes # (Auto) 1.1 x10^3/uL (0.0-1.1) Eosinophils # (Auto) 0.5 x10^3/uL (0.0-0.7) Basophils # (Auto) 0.0 x10^3/uL (0.0-0.2) Sodium Level 138 mmol/L (136-145) Potassium Level 3.5 mmol/L (3.5-5.1) Chloride Level 102 mmol/L (98-107) Carbon Dioxide Level 31 mmol/L (21-32) Anion Gap 5 (6-14) Blood Urea Nitrogen 10 mg/dL (8-26) Creatinine 0.9 mg/dL (0.7-1.3) Estimated GFR (Cockcroft-Gault) 105.6 Glucose Level 93 mg/dL (70-99) Calcium Level 8.9 mg/dL (8.5-10.1) Problem List Problems Medical Problems: (1) Cellulitis of buttock, right Status: Acute Assessment/Plan wound care, abx Justicifation of Admission Dx: Justifications for Admission: Justification of Admission Dx: Yes Cellulitis: Cellulitis CL[facility] [employer] Mar 10, 2021 08:36
[2021-03-10 11:13] VITALS: BP 142/90
[2021-03-10 15:00] VITALS: BP 132/55
--- NOTE | 2021-03-10 15:15 | PDOC ---
[facility] PROGRESS NOTE Date of Service DOS: DATE: 03/10/21 TIME: 15:12 Chief Complaint Chief Complaint Assessment/Plan gluteal cellulitis ACUTE CT no abscess appears draining continue IV abx, warm compress Normocytic anemia HTN HLD Depression GERD Moderate protein-caloric malnutrition Morbid obesity Plan: admit general surgery consultation Continue IV vancomycin IV pain management Resume home medications FEN - Cardiac diet; PPX - Heparin FULL CODE Dispo - inpatient for above d/w RN 03-09 Justifications for Admission Justifications for Admission Other Justification History of Present Illness History of Present Illness History of Present Illness History of Present Illness Patient is a 55-year-old male who presents from [facility] for evaluation of a right gluteal abscess that is been present since March 01, he states he has been treated with Bactrim twice daily without improvement. States that since has been within purulent fluid, and is tender to touch. He denies any fever, nausea, or vomiting. Labs on admission showed WBC 15.8, hemoglobin 12.2, hematocrit 37.3, potassium 3.2, CRP 77.8, albumin 3.3. CT abdomen/pelvis on admission showed marked infiltration right gluteal region may represent cellulitis but no discrete associated loculated fluid collection. He received IV fluids and IV antibiotics in the ED. Will admit patient for further medical management. 03/10/21 Patient seen and examined at bedside. Reports pain improving. Continue antibiotics for gluteal cellulitis. Will transition to p.o. when appropriate. Labs improving. Wound care consulted. Plan of care discussed with bedside nurse Vitals/I&O Vitals/I&O: Vital Signs Date Time Temp Pulse Resp B/P (MAP) Pulse Ox O2 Delivery O2 Flow Rate FiO2 03/10/21 11:13 98.2 91 22 142/90 (107) 92 Room Air 98.2 I & O 03/09/21 03/09/21 03/10/21 15:00 23:00 07:00 Intake Total 500 ml 240 ml Balance 500 ml 240 ml Physical Exam General: Alert, Oriented X3, Cooperative Heart: Regular rate, Normal S1, Normal S2 Lungs: Clear Abdomen: Normal bowel sounds, Soft, No tenderness Extremities: No clubbing, No cyanosis Skin: Other (wound with drainage, no tissue necrosis) Labs Labs: Laboratory Tests Test 03/09/21 20:00 03/10/21 04:07 Vancomycin Level Trough 13.6 mcg/mL (10.0-20.0) Vancomycin Last Dose Date 03/09/21 Vancomycin Last Dose Time 1100 White Blood Count 11.7 x10^3/uL (4.0-11.0) Red Blood Count 4.19 x10^6/uL (4.30-5.70) Hemoglobin 12.0 g/dL (13.0-17.5) Hematocrit 36.1 % (39.0-53.0) Mean Corpuscular Volume 86 fL (79-100) Mean Corpuscular Hemoglobin 29 pg (25-35) Mean Corpuscular Hemoglobin Concent 33 g/dL (31-37) Red Cell Distribution Width 14.7 % (11.5-14.5) Platelet Count 307 x10^3/uL (140-400) Neutrophils (%) (Auto) 66 % (31-73) Lymphocytes (%) (Auto) 20 % (24-48) Monocytes (%) (Auto) 9 % (0-9) Eosinophils (%) (Auto) 4 % (0-3) Basophils (%) (Auto) 0 % (0-3) Neutrophils # (Auto) 7.7 x10^3/uL (1.8-7.7) Lymphocytes # (Auto) 2.3 x10^3/uL (1.0-4.8) Monocytes # (Auto) 1.1 x10^3/uL (0.0-1.1) Eosinophils # (Auto) 0.5 x10^3/uL (0.0-0.7) Basophils # (Auto) 0.0 x10^3/uL (0.0-0.2) Sodium Level 138 mmol/L (136-145) Potassium Level 3.5 mmol/L (3.5-5.1) Chloride Level 102 mmol/L (98-107) Carbon Dioxide Level 31 mmol/L (21-32) Anion Gap 5 (6-14) Blood Urea Nitrogen 10 mg/dL (8-26) Creatinine 0.9 mg/dL (0.7-1.3) Estimated GFR (Cockcroft-Gault) 105.6 Glucose Level 93 mg/dL (70-99) Calcium Level 8.9 mg/dL (8.5-10.1) Assessment and Plan Assessmemt and Plan Problems Medical Problems: (1) Cellulitis of buttock, right Status: Acute Comment Review of Relevant I have reviewed the following items gerri (where applicable) has been applied. Medications: Current Medications Medications (Trade) Dose Ordered Sig/Fatmata Route PRN Reason Start Time Stop Time Status Last Admin Dose Admin Vancomycin HCl (Vancomycin Trough Level) 1 each 1X ONCE MC 03/09/21 18:30 03/09/21 18:31 DC 03/09/21 18:30 Duloxetine HCl (Cymbalta) 30 mg QHS PO 03/09/21 21:00 03/09/21 21:36 Justifications for Admission Other Justification WELLINGTON LOYOLA MD Mar 10, 2021 15:15
[2021-03-10] MEDS ORDERED: oxyCODONE/APAP 5/325 1 TAB TABLET PO PRN ×2 (15:45)
[2021-03-10 19:47] VITALS: BP 135/80
[2021-03-10] MEDS: ALBUTEROL SULFATE 2.5 MG/3 ML NEBU. NEB SCH (20:00)
[2021-03-10] MEDS: LACTOBACILLUS RHAMNOSUS GG 1 CAPSULE. PO SCH (21:57)
[2021-03-10] MEDS: DULoxetine HCL 30 MG CAPSULE.DR PO SCH (21:58)
[2021-03-10 22:38] VITALS: BP 133/76
[2021-03-11 02:03] VITALS: BP 141/75
[2021-03-11] MEDS: VANCOMYCIN 1.5 GM in IV NORMAL SALINE 500ML BAG 500 ML IV SCH (02:44)
[2021-03-11] MEDS: HEPARIN for SUB-Q USE 5,000 UNIT/ML VIAL. SQ SCH ×2 (06:14→14:00)
[2021-03-11 07:10] VITALS: BP 160/94
[2021-03-11] MEDS: ALBUTEROL SULFATE 2.5 MG/3 ML NEBU. NEB SCH ×2 (07:21→11:10)
--- NOTE | 2021-03-11 08:34 | PDOC ---
CLARA OLIVER TAXATION CONSULTANT 03/11/21 0834: SURGICAL PROGRESS NOTE DATE: 03/11/21 TIME: 08:33 Subjective doing ok improving Vital Signs Vital Signs Date Time Temp Pulse Resp B/P (MAP) Pulse Ox O2 Delivery O2 Flow Rate FiO2 03/11/21 07:22 98 Room Air 03/11/21 07:10 97.8 66 18 160/94 (116) 97.8 I&O Intake and Output 03/11/21 07:00 Intake Total 300 ml Output Total 950 ml Balance -650 ml Intake Oral 300 ml Output Urine Total 950 ml General: Alert, Oriented X3, Cooperative Skin: Other (wound with less erythema, drainage present) Labs Laboratory Tests Test 03/09/21 20:00 03/10/21 04:07 Vancomycin Level Trough 13.6 mcg/mL (10.0-20.0) Vancomycin Last Dose Date 03/09/21 Vancomycin Last Dose Time 1100 White Blood Count 11.7 x10^3/uL (4.0-11.0) Red Blood Count 4.19 x10^6/uL (4.30-5.70) Hemoglobin 12.0 g/dL (13.0-17.5) Hematocrit 36.1 % (39.0-53.0) Mean Corpuscular Volume 86 fL (79-100) Mean Corpuscular Hemoglobin 29 pg (25-35) Mean Corpuscular Hemoglobin Concent 33 g/dL (31-37) Red Cell Distribution Width 14.7 % (11.5-14.5) Platelet Count 307 x10^3/uL (140-400) Neutrophils (%) (Auto) 66 % (31-73) Lymphocytes (%) (Auto) 20 % (24-48) Monocytes (%) (Auto) 9 % (0-9) Eosinophils (%) (Auto) 4 % (0-3) Basophils (%) (Auto) 0 % (0-3) Neutrophils # (Auto) 7.7 x10^3/uL (1.8-7.7) Lymphocytes # (Auto) 2.3 x10^3/uL (1.0-4.8) Monocytes # (Auto) 1.1 x10^3/uL (0.0-1.1) Eosinophils # (Auto) 0.5 x10^3/uL (0.0-0.7) Basophils # (Auto) 0.0 x10^3/uL (0.0-0.2) Sodium Level 138 mmol/L (136-145) Potassium Level 3.5 mmol/L (3.5-5.1) Chloride Level 102 mmol/L (98-107) Carbon Dioxide Level 31 mmol/L (21-32) Anion Gap 5 (6-14) Blood Urea Nitrogen 10 mg/dL (8-26) Creatinine 0.9 mg/dL (0.7-1.3) Estimated GFR (Cockcroft-Gault) 105.6 Glucose Level 93 mg/dL (70-99) Calcium Level 8.9 mg/dL (8.5-10.1) Problem List Problems Medical Problems: (1) Cellulitis of buttock, right Status: Acute Assessment/Plan continue wound care, abx Justicifation of Admission Dx: Justifications for Admission: Justification of Admission Dx: Yes Cellulitis: Cellulitis TOY MARTINEZ MD 03/11/21 0919: SURGICAL PROGRESS NOTE Assessment/Plan Pt seen and examined. Agree with Ms. Oliver's note Pt feels better wound with less induration cont wound care CLARA OLIVER APRN Mar 11, 2021 08:34 TOY MARTINEZ MD Mar 11, 2021 09:19
[2021-03-11] MEDS: TAMSULOSIN 0.4 MG CAP.ER.24H. PO SCH (08:53)
[2021-03-11] MEDS: CETIRIZINE HCL 10 MG TABLET. PO SCH (08:53)
[2021-03-11] MEDS: LACTOBACILLUS RHAMNOSUS GG 1 CAPSULE. PO SCH (08:53)
[2021-03-11] MEDS: ATORVASTATIN CALCIUM 20 MG TABLET PO SCH (08:53)
[2021-03-11] MEDS: ASPIRIN CHEWABLE 81 MG TABLET. PO SCH (08:53)
[2021-03-11] MEDS: LISINOPRIL 20 MG TABLET PO SCH (08:53)
[2021-03-11] MEDS: VANCOMYCIN PER PHARMACY MC PRN (09:50)
[2021-03-11 11:19] VITALS: BP 151/88
[2021-03-11] MEDS ORDERED: Smz/Tmp 800/160MG PO (11:45)
--- NOTE | 2021-03-11 11:48 | PDOC3 ---
[facility] Summary Date of Admission: Date of Admission: Mar 08, 2021 Date of Discharge: Date of Discharge: Mar 11, 2021 Admission Diagnosis: Admitting Diagnosis: Gluteal cellulitis Discharge Diagnosis: Discharge Diagnosis: Gluteal Cellulitis Consults: Consults: Surgery Hospital Course: Hospital Course: Patient is a 55-year-old male who presents from [facility] for evaluation of a right gluteal abscess that is been present since March 01, he states he has been treated with Bactrim twice daily without improvement. States that since has been within purulent fluid, and is tender to touch. He denies any fever, nausea, or vomiting. Labs on admission showed WBC 15.8, hemoglobin 12.2, hematocrit 37.3, potassium 3.2, CRP 77.8, albumin 3.3. CT abdomen/pelvis on admission showed marked infiltration right gluteal region may represent cellulitis but no discrete associated loculated fluid collection. He received IV fluids and IV antibiotics in the ED. Will admit patient for further medical management. 03/10/21 Patient seen and examined at bedside. Reports pain improving. Continue antibiotics for gluteal cellulitis. Will transition to p.o. when appropriate. Labs improving. Wound care consulted. Plan of care discussed with bedside nurse 03/11/21 Patient seen and examined at bedside. Reports pain well controlled no overall complaints this morning. Received call from patient's facility they are able to accept him back. Contacted surgery team who were okay with discharge. Patient's vancomycin switched to Bactrim to complete course. We will plan for discharge today. Disposition: Disposition/Orders: D/C to Another Facility Activity: Activity: Resume previous activity Diet: Diet: Regular Medications: Home Meds Active Scripts [Smz/Tmp 800/160MG] 1 TAB TABLET No Conflict Check, 1 TAB PO BID for 10 Days Prov:WELLINGTON LOYOLA MD 03/11/21 Reported Medications Aspirin (ASPIRIN) 81 Mg Tab.chew, 1 TAB PO DAILY for anti-platelet, #30 TAB 03/09/21 Cetirizine Hcl (ZYRTEC) 10 Mg Tablet, 1 TAB PO DAILY for ALLERGY, #30 TAB 3 Refills 03/09/21 Pantoprazole Sodium (PROTONIX) 20 Mg Tablet.dr, 40 MG PO DAILY for GERD, TAB 03/09/21 Tamsulosin Hcl (FLOMAX) 0.4 Mg Cap.er.24h, 2 CAP PO DAILY for URINARY ISSUE, #90 CAP 3 Refills 03/09/21 Duloxetine Hcl (CYMBALTA) 30 Mg Capsule.dr, 30 MG PO QHS for depression, CAP 03/09/21 Magnesium Hydroxide (MILK OF MAGNESIA) 400 Mg/5 Ml Oral.susp, 400 MG PO BID 11/24/16 Montelukast Sodium (MONTELUKAST SODIUM TABLET ) 10 Mg Tablet, 1 TAB PO DAILY, #30 TAB 5 Refills 11/24/16 Amlodipine Besylate (NORVASC) 10 Mg Tablet, 10 MG PO DAILY, TAB 11/24/16 Naproxen (NAPROXEN) 500 Mg Tablet.dr, 1 TAB PO BID, #60 TAB 2 Refills 11/24/16 Lisinopril (LISINOPRIL) 20 Mg Tablet, 20 MG PO BID for FOR HYPERTENSION, #30 TAB 0 Refills 11/24/16 Atorvastatin Calcium (LIPITOR) 20 Mg Tablet, 1 TAB PO DAILY, #90 TAB 1 Refill 11/24/16 Metformin Hcl (GLUCOPHAGE) 1,000 Mg Tablet, 1000 MG PO BIDWMEALS, TAB 11/24/16 Bisacodyl (DULCOLAX) 5 Mg Tablet.dr, 5 MG PO PRN DAILY PRN for CONSTIPATION, TAB 0 Refills 11/24/16 Chlorthalidone (CHLORTHALIDONE ) 25 Mg Tablet, 1 TAB PO DAILY, #30 TAB 5 Refills 11/24/16 Ciclesonide (ALVESCO) 6.1 Gm Hfa.aer.ad, 6.1 GM IH 11/24/16 Spironolactone (ALDACTONE) 50 Mg Tablet, 1 TAB PO DAILY, #30 TAB 3 Refills 11/24/16 Albuterol Sulfate (PROAIR HFA INHALER) 8.5 Gm Hfa.aer.ad, 2 PUFF INH Q4HRS PRN for SHORTNESS OF BREATH, INHALER 0 Refills 11/24/16 Scheduled Amlodipine Besylate (Norvasc), 10 MG PO DAILY, (Reported) Aspirin (Aspirin), 1 TAB PO DAILY, (Reported) Atorvastatin Calcium (Lipitor), 1 TAB PO DAILY, (Reported) Cetirizine Hcl (Zyrtec), 1 TAB PO DAILY, (Reported) Chlorthalidone (Chlorthalidone ), 1 TAB PO DAILY, (Reported) Duloxetine Hcl (Cymbalta), 30 MG PO QHS, (Reported) Lisinopril (Lisinopril), 20 MG PO BID, (Reported) Magnesium Hydroxide (Milk Of Magnesia), 400 MG PO BID, (Reported) Metformin Hcl (Glucophage), 1,000 MG PO BIDWMEALS, (Reported) Montelukast Sodium (Montelukast Sodium Tablet ), 1 TAB PO DAILY, (Reported) Naproxen (Naproxen), 1 TAB PO BID, (Reported) Pantoprazole Sodium (Protonix), 40 MG PO DAILY, (Reported) Spironolactone (Aldactone), 1 TAB PO DAILY, (Reported) Tamsulosin Hcl (Flomax), 2 CAP PO DAILY, (Reported) [Smz/Tmp 800/160MG], 1 TAB PO BID Scheduled PRN Albuterol Sulfate (Proair Hfa Inhaler), 2 PUFF INH Q4HRS PRN for SHORTNESS OF BREATH, (Reported) Bisacodyl (Dulcolax), 5 MG PO PRN DAILY PRN for CONSTIPATION, (Reported) Miscellaneous Medications Ciclesonide (Alvesco), 6.1 GM IH, (Reported) Justicifation of Admission Dx: Justifications for Admission: Justification of Admission Dx: Yes Cellulitis: Cellulitis WELLINGTON LOYOLA MD Mar 11, 2021 11:48
--- NOTE | 2021-03-11 15:37 | NUR ---
Pt discharged back to [facility]. Report given to [facility]. Wound pics taken. Dressings changed. IV removed. Pt assisted to wheelchair and secured in car with guards.
[2021-03-11] MEDS ORDERED: SMZ/TMP 800/160MG TABLET. PO SCH (21:00)
== END 2021-03-11 15:40 | DRG 603 ==
LOC: EEVIPCON 16:12 → ER 16:12 → 4 NORTH 20:31
PROVIDERS: ADMIT Family Medicine; ATTEND Family Medicine
DX: L03.317 Cellulitis of buttock (principal); E44.0 Moderate protein-calorie malnutrition; Z68.42 Body mass index [BMI] 45.0-49.9, adult; L02.31 Cutaneous abscess of buttock; D64.9 Anemia, unspecified; E11.9 Type 2 diabetes mellitus without complications; E66.01 Morbid (severe) obesity due to excess calories; E78.5 Hyperlipidemia, unspecified; F32.9 Major depressive disorder, single episode, unspecified; G47.00 Insomnia, unspecified; I10 Essential (primary) hypertension; J45.909 Unspecified asthma, uncomplicated; K21.9 Gastro-esophageal reflux disease without esophagitis; K59.00 Constipation, unspecified; Z79.84 Long term (current) use of oral hypoglycemic drugs; Z79.899 Other long term (current) drug therapy; Z82.49 Family history of ischemic heart disease and other diseases of the circulatory system; Z83.3 Family history of diabetes mellitus; M19.90 Unspecified osteoarthritis, unspecified site
CPT/HCPCS: 36415; 72193; 80048; 80053; 80202; 83605; 84145; 85025; 85651; 86140; 87040; 90471; 90715; 94640; 94760; 96361; 96365; 96367; 96375; J1644; J2270; J2543; J3370; J7030; J7040; Q9967; 99285-25; G0378; J7613